=== PATIENT | female | born 1965 | race Caucasian/White ===

== ENCOUNTER 2016-08-14 13:39 | Observation (INO) | payer MEDICAID ==
[2016-08-14] MEDS ORDERED: NS 0.9% 1000 ML* 1,000 ML IV ONE (14:26)
[2016-08-14 14:35] LABS: Hematocrit 38 % (35-47); Hemoglobin 12.6 g/dl (12.0-16.0); Mean Corpuscular HGB Conc 33 g/dl (31-36); Mean Corpuscular Hemoglobin 28 pg (27-31); Mean Corpuscular Volume 85 fL (80-97); Mean Platelet Volume 9 um3 (7.4-10.4); Red Cell Distribution Width 16 % (10.5-15); White Blood Count 9.3 10^3/ul (3.5-10.8)
[2016-08-14 14:51] LABS: Albumin 3.8 g/dL (3.2-5.2); BUN/Creatinine Ratio 21.2 (8-20); C Reactive Protein 15.22 mg/L (< 5.00); EGFR African American 160.5 (>60); EGFR Non-African American 124.8 (>60); Globulin 3.5 g/dL (2-4); Potassium 3.3 mmol/L (3.5-5.0); Total Protein 7.3 g/dL (6.4-8.9)
--- NOTE | 2016-08-14 15:27 | ED ---
Abdominal Pain/Male - HPI Summary HPI Summary: Patient presents with RUQ pain and known gall stones. She was scheduled to have her gallbladder removed on 08/07/16 but her insurance fell through and it was postponed. Over the last two days her pain has again become intolerable. She denies fever, but has had chills. She feels nauseous without vomiting, denies diarrhea, constipation. Pain is increased after eating and takes 3 hours to resolve. She denies back pain, CP, SOB or flank pain. - History of Current Complaint Chief Complaint: EDAbdPain Stated Complaint: ABD PAIN Time Seen by Provider: 08/14/16 14:10 Hx Obtained From: Patient Onset/Duration: Gradual Onset, Lasting Days, Worse Since - two days ago Timing: Intermittent, Lasting Hours - after meals Severity Initially: Mild Severity Currently: Severe Pain Intensity: 20 Location: Discrete At: RUQ Radiates: No Character: Sharp Aggravating Factor(s): Food Alleviating Factor(s): Spontaneous Resolution Associated Signs And Symptoms: Positive: Nausea - Allergies/Home Medications Allergies/Adverse Reactions: Allergies Allergy/AdvReac Type Severity Reaction Status Date / Time No Known Allergies Allergy Verified 08/01/16 12:38 Home Medications: Home Medications Lisinopril [Lisinopril 30 MG-] 30 mg PO DAILY 08/14/16 [History Confirmed ] Metoprolol Succinate XL TAB* [Toprol XL TAB*] 50 mg PO DAILY 08/14/16 [History Confirmed 08/14/16] Venlafaxine CAP (NF) [Effexor CAP (NF)] 75 mg PO DAILY 08/14/16 [History Confirmed 08/14/16] buPROPion SR TAB* [Wellbutrin SR TAB*] 150 mg PO BID 08/14/16 [History Confirmed 08/14/16] oxyCODONE TAB* [Roxycodone TAB 5 mg*] 5 - 10 mg PO DAILY PRN MDD 10mg 08/14/16 [ History Confirmed 08/14/16] PMH/Surg Hx/FS Hx/Imm Hx Endocrine/Hematology History: Denies: Hx Diabetes Cardiovascular History: Reports: Hx Hypertension Denies: Hx Pacemaker/ICD GI History: Reports: Hx Gall Bladder Disease History: Denies: Hx Renal Disease Musculoskeletal History: Reports: Hx Arthritis Sensory History: Reports: Hx Contacts or Glasses - glasses Denies: Hx Hearing Aid Opthamlomology History: Reports: Hx Contacts or Glasses - glasses Psychiatric History: Reports: Hx Anxiety - on meds, Hx Depression Denies: Hx Panic Disorder - Surgical History Surgery Procedure, Year, and Place: LT KNEE - Xs 2 PATELLA REPAIR Hx Anesthesia Reactions: No Infectious Disease History: No Infectious Disease History: Denies: Traveled Outside the [place] in Last 30 Days - Family History Known Family History: Positive: None - Social History Occupation: Employed Full-time Lives: With Family Alcohol Use: None Substance Use Type: Reports: None Smoking Status (MU): Never Smoked Tobacco Review of Systems Negative: Fever Negative: Chest Pain Negative: Shortness Of Breath Positive: Abdominal Pain, Nausea. Negative: Vomiting, Diarrhea Positive: no symptoms reported Negative: Bruising All Other Systems Reviewed And Are Negative: Yes Physical Exam Triage Information Reviewed: Yes Vital Signs On Initial Exam: Initial Vitals Temp Pulse Resp BP Pulse Ox 96.7 F 69 22 187/112 96 08/14/16 13:53 08/14/16 13:53 08/14/16 13:53 08/14/16 13:53 08/14/16 13:53 Vital Signs Reviewed: Yes Appearance: Positive: Well-Appearing, Pain Distress, Obese Skin: Positive: Warm, Skin Color Reflects Adequate Perfusion, Dry, Soft Head/Face: Positive: Normal Head/Face Inspection Eyes: Positive: EOMI, ABDELRAHMAN, Conjunctiva Clear ENT: Positive: Hearing grossly normal Respiratory/Lung Sounds: Positive: Clear to Auscultation, Breath Sounds Present Cardiovascular: Positive: RRR Abdomen Description: Positive: Soft, Guarding - RUQ. Negative: Nontender - TTP RUQ and epigastric region, CVA Tenderness (R), CVA Tenderness (L), Distended, Hepatomegaly, McBurney's Point Tenderness, Peritoneal Signs, Pulsatile Mass, Splenomegaly Bowel Sounds: Positive: Present Musculoskeletal: Positive: Strength/ROM Intact. Negative: Edema Left, Edema Right Neurological: Positive: Sensory/Motor Intact, Alert, Oriented to Person Place, Time, NV Bundle Intact Distally Psychiatric: Positive: Affect/Mood Appropriate AVPU Assessment: Alert - E[place]to Coma Scale Coma Scale Total: 15 Diagnostics - Vital Signs Vital Signs Temp Pulse Resp BP Pulse Ox 08/14/16 14:58 89 19 99 08/14/16 14:00 61 99 08/14/16 13:53 96.7 F 66 22 187/112 98 - Laboratory Lab Results: Lab Results 08/14/16 08/14/16 Range/Units 13:10 13:10 WBC 9.3 (3.5-10.8) 10^3/ul RBC 4.50 (4.0-5.4) 10^6/ul Hgb 12.6 (12.0-16.0) g/dl Hct 38 (35-47) % MCV 85 (80-97) fL MCH 28 (27-31) pg MCHC 33 (31-36) g/dl RDW 16 H (10.5-15) % Plt Count 299 (150-450) 10^3/ul MPV 9 (7.4-10.4) um3 Neut % (Auto) 73.2 (38-83) % Lymph % (Auto) 17.0 L (25-47) % [place] % (Auto) 8.0 (1-9) % Eos % (Auto) 1.3 (0-6) % Baso % (Auto) 0.5 (0-2) % Absolute Neuts (auto) 6.8 (1.5-7.7) 10^3/ul Absolute Lymphs (auto) 1.6 (1.0-4.8) 10^3/ul Absolute Monos (auto) 0.7 (0-0.8) 10^3/ul Absolute Eos (auto) 0.1 (0-0.6) 10^3/ul Absolute Basos (auto) 0 (0-0.2) 10^3/ul Absolute Nucleated RBC 0 10^3/ul Nucleated RBC % 0 Sodium 138 (133-145) mmol/L Potassium 3.3 L (3.5-5.0) mmol/L Chloride 104 (101-111) mmol/L Carbon Dioxide 27 (22-32) mmol/L Anion Gap 7 (2-11) mmol/L BUN 11 (6-24) mg/dL Creatinine 0.52 (0.51-0.95) mg/dL Est GFR ( Amer) 160.5 (>60) Est GFR (Non-Af Amer) 124.8 (>60) BUN/Creatinine Ratio 21.2 H (8-20) Glucose 98 (70-100) mg/dL Calcium 9.0 (8.6-10.3) mg/dL Total Bilirubin 2.00 H (0.2-1.0) mg/dL AST 638 H (13-39) U/L ALT 369 H (7-52) U/L Alkaline Phosphatase 157 H (34-104) U/L C-Reactive Protein 15.22 H (< 5.00) mg/L Total Protein 7.3 (6.4-8.9) g/dL Albumin 3.8 (3.2-5.2) g/dL Globulin 3.5 (2-4) g/dL Albumin/Globulin Ratio 1.1 (1-3) Result Diagrams: 08/15/16 06:47 08/14/16 17:30 Lab Statement: Any lab studies that have been ordered have been reviewed, and results considered in the medical decision making process. - EKG No standard instances Cardiac Rate: NL EKG Rhythm: Sinus Rhythm ST Segment: Normal Ectopy: None Abdominal Pain Fem Course/Dx - Course Course Of Treatment: Patient's notes and imaging from previous visits were reviewed and a surgical consults was sought. - Diagnoses Differential Diagnosis/HQI/PQRI: AMI, Appendicitis, Bowel Obstruction, Constipation, Diverticulitis, Gall Bladder Disease, Pancreatitis, Renal Colic, Ureteral Stone, Urinary Tract Infection Provider Diagnoses: Gall bladder disease - Provider Notifications Discussed Care Of Patient With: Dr. Burkett with general surgery. Discharge - Discharge Plan Condition: Stable Disposition: ADMITTED TO [facility]
[2016-08-14 15:44] LABS: Troponin I 0.02 ng/mL (<0.04)
--- NOTE | 2016-08-14 17:09 | PN ---
Progress Note - Progress Note Note: Brief Admit note: (H&P dictated) 51 yo female w/ known hx of cholelithiasis, scheduled for lap myla last wk but cx'd 2/2 loss of insurance. Had worst attack thus far starting at 6 pm last night, with RUQ pain, radiating across upper abd, assoc w/ N&V, chills, and dark urine (which she states has been present since onset of her GB trouble in Mar). At present she is w/o pain. VS, Labs, and previous w/u reviewed. Patient examined. Acute Biliary colic, w/ concern for choledocholithiasis Discussed w/ Dr. Burkett. Will admit for IV hydration, pain and nausea control ; repeat labs in a.m.; poss lap myla 08/15 if labs improved.
[2016-08-14] MEDS ORDERED: Metoprolol Tartrate IV* 1 MG/ML 5 ML VIAL IV PRN (17:18)
[2016-08-14] MEDS ORDERED: Ondansetron INJ* 2 MG/ML VIAL IV ONE (17:20)
[2016-08-14] MEDS ORDERED: HYDROmorphone INJ* 1 MG/ML CARPUJECT SYRINGE IV SLOW PU ONE ×2 (17:20)
[2016-08-14 18:46] LABS: BUN/Creatinine Ratio 20.8 (8-20); Calcium 8.7 mg/dL (8.6-10.3); EGFR African American 176.1 (>60); EGFR Non-African American 136.9 (>60); Potassium 3.9 mmol/L (3.5-5.0)
[2016-08-14] MEDS: HYDROmorphone INJ* 1 MG/ML CARPUJECT SYRINGE IV SLOW PU PRN (19:20)
[2016-08-14] MEDS: buPROPion SR TAB.SR* 150 MG PO SCH (20:55)
[2016-08-14] MEDS ORDERED: buPROPion SR TAB.SR* 150 MG PO ONE (21:00)
--- NOTE | 2016-08-14 21:06 | HP ---
ADMISSION HISTORY AND PHYSICAL: DATE OF ADMISSION: 08/14/16 ATTENDING SURGEON: Trent Burkett MD (dictated by MARIPOSA Cabello) CHIEF COMPLAINT: Right upper quadrant pain. HISTORY OF PRESENT ILLNESS: This is a 51-year-old female previously worked up and scheduled for cholecystectomy for symptomatic cholelithiasis; however, surgery was postponed because of insurance issues. In the interim, she has continued to experience intermittent episodes of upper abdominal pain and beginning last evening around 6 p.m., her worst attack thus far with unrelenting right upper quadrant pain radiating across the upper abdomen and associated with nausea and multiple episodes of vomiting. She also reports chills and dark urine (the dark urine she states has been present since onset of her gallbladder problems in March). At the present time, she states that her pain is 0 and she has not required any pain medications in the ED. Her previous workup included an ultrasound on 04/12/16, which showed gallstones , but no evidence of acute cholecystitis. Her initial presentation while camping in the [facility] area included rule out of cardiac issues and elevated liver function tests, which had since returned to normal on repeat check here. PAST MEDICAL HISTORY: 1. Hypertension. 2. Depression. PREVIOUS SURGERIES: Left knee cap replacement (she is also pending for possible total knee replacement in the future). CURRENT MEDICATIONS: 1. Metoprolol ER 50 mg once daily. 2. Lisinopril 30 mg once daily. 3. Venlafaxine 75 mg once daily. 4. Bupropion ER 150 mg b.i.d. (the patient states that one of her blood pressure medications was increased recently by her PCP, possibly the metoprolol , though she is not entirely sure). DRUG ALLERGIES: None known. SOCIAL HISTORY: The patient lives with her female partner. She denies alcohol , tobacco, or other drug use. REVIEW OF SYSTEMS: General: Constitutional symptoms as noted above. She states that her weight has remained stable. Cardiovascular: No chest pain per se (other than her epigastric pain as noted in the HPI). Respiratory: No chronic cough or shortness of breath. GI: As above per HPI. : No dysuria or increased frequency. Dark urine as noted in the HPI. MEDICAL RECEPTION: Denies any problems. Hematological: No history of chronic anemia or bleeding disorders. PHYSICAL EXAMINATION GENERAL: A well-nourished, somewhat obese female, in no acute distress though appears chilled with blankets covering her. VITAL SIGNS: Height 5 feet 7 inches, weight 220 pounds, temperature 96.7, blood pressure 187/112, pulse 88, respirations 19, and room air saturation 99%. HEENT: Pupils equal, round, reactive. EOMs intact. No conjunctival pallor or scleral icterus. Oropharynx: Mucous membranes slightly dry. Some teeth missing and are in poor repair. No intraoral lesions. NECK: No lymphadenopathy, thyromegaly, or masses. LUNGS: Clear to auscultation. No wheezes or rales. HEART: Regular rate and rhythm. No murmur noted. BREASTS: Not examined. ABDOMEN: Obese, soft with tenderness in the mid epigastrium and right upper quadrant with palpable fullness and positive Avila's sign. The remainder of the abdomen is soft, nontender without palpable masses or organomegaly. No palpable inguinal hernias. EXTREMITIES: No edema. GENITALIA AND RECTAL: Not done. BACK: No CVA tenderness. NEUROLOGICAL: Grossly intact. SKIN: Warm and dry. No suspicious rashes or lesions. DIAGNOSTIC STUDIES/LAB DATA: Of note, white blood cell count 9300 and hemoglobin 12.6. Potassium 3.3. CRP 15. Troponin 0.02. Total bilirubin 2.0, AST 638, ALT 369, and alkaline phosphatase 157. No additional imaging was done. EKG was done and read as normal by the ED provider. IMPRESSION: Acute biliary colic with elevated LFTs, some concern for choledocholithiasis. PLAN (DISCUSSED WITH DR. BURKETT): Admit for IV hydration, pain and nausea control, and repeat lab work in the morning. If improved, possible semi-urgent laparoscopic cholecystectomy. MARIPOSA KRAUS CC: Dr. Burkett's office; Dr. Marrero at [facility]* [id number]/[facility] #: [id number] [facility]
[2016-08-14] MEDS ORDERED: Piperac/Tazob 3.375 gm in NS* 3.375 GM/100 ML BAG IVPB ONE (22:00)
[2016-08-14] MEDS: NS 0.9% w/ 20 Meq KCL 1000 ML* 1,000 ML IV SCH (22:26)
[2016-08-15] MEDS: HYDROmorphone INJ* 1 MG/ML CARPUJECT SYRINGE IV SLOW PU PRN ×2 (01:03→23:59)
[2016-08-15] MEDS: Piperac/Tazob 3.375 gm in NS* 3.375 GM/100 ML BAG IVPB SCH ×2 (01:05→10:37)
[2016-08-15] MEDS ORDERED: Piperac/Tazob 3.375 gm in NS* 3.375 GM/100 ML BAG IVPB ONE (02:00)
[2016-08-15 07:17] LABS: Hematocrit 33 % (35-47); Mean Corpuscular HGB Conc 33 g/dl (31-36); Mean Corpuscular Hemoglobin 29 pg (27-31); Mean Corpuscular Volume 86 fL (80-97); Mean Platelet Volume 9 um3 (7.4-10.4); Red Blood Count 3.83 10^6/ul (4.0-5.4); Red Cell Distribution Width 16 % (10.5-15); White Blood Count 7.3 10^3/ul (3.5-10.8)
[2016-08-15 07:33] LABS: ALT 265 U/L (7-52); AST 248 U/L (13-39); Albumin 3.1 g/dL (3.2-5.2); Alkaline Phosphatase 138 U/L (34-104); Globulin 2.9 g/dL (2-4); Indirect Bilirubin 1.3 mg/dL (0.3-1.0)
[2016-08-15] MEDS: NS 0.9% w/ 20 Meq KCL 1000 ML* 1,000 ML IV SCH ×2 (07:52→16:35)
--- NOTE | 2016-08-15 08:11 | PN ---
Progress Note - Progress Note SOAP: Subjective: She had been scheduled with me for elective cholecystectomy on 08/07 but cancelled due to insurance reasons. She feels better this morning- no pain or N/V Ambulating in halls Objective: Temp Pulse Resp BP Pulse Ox 97.8 F 88 18 150/96 98 08/15/16 07:53 08/15/16 07:53 08/15/16 07:53 08/15/16 07:53 08/15/16 07:53 Intake & Output 08/13/16 08/14/16 08/15/16 08/16/16 06:59 06:59 06:59 06:59 Intake Total 2522 Output Total 275 Balance 2247 Weight 220 lb Intake: IV Fluids 2160 IVPB 212 Oral 150 Output: Urine 275 PEX: Comfortable Lungs are CTA COr is RRR Abd is soft and non-distended. There is no tenderness, bowel sounds are present. Ext without edema Laboratory Last Values WBC 7.3 10^3/ul (3.5-10.8) 08/15/16 06:47 RBC 3.83 10^6/ul (4.0-5.4) L 08/15/16 06:47 Hgb 11.0 g/dl (12.0-16.0) L 08/15/16 06:47 Hct 33 % (35-47) L 08/15/16 06:47 MCV 86 fL (80-97) 08/15/16 06:47 MCH 29 pg (27-31) 08/15/16 06:47 MCHC 33 g/dl (31-36) 08/15/16 06:47 RDW 16 % (10.5-15) H 08/15/16 06:47 Plt Count 241 10^3/ul (150-450) 08/15/16 06:47 MPV 9 um3 (7.4-10.4) 08/15/16 06:47 Neut % (Auto) 57.1 % (38-83) 08/15/16 06:47 Lymph % (Auto) 30.1 % (25-47) 08/15/16 06:47 [place] % (Auto) 7.8 % (1-9) 08/15/16 06:47 Eos % (Auto) 4.1 % (0-6) 08/15/16 06:47 Baso % (Auto) 0.9 % (0-2) 08/15/16 06:47 Absolute Neuts (auto) 4.2 10^3/ul (1.5-7.7) 08/15/16 06:47 Absolute Lymphs (auto) 2.2 10^3/ul (1.0-4.8) 08/15/16 06:47 Absolute Monos (auto) 0.6 10^3/ul (0-0.8) 08/15/16 06:47 Absolute Eos (auto) 0.3 10^3/ul (0-0.6) 08/15/16 06:47 Absolute Basos (auto) 0.1 10^3/ul (0-0.2) 08/15/16 06:47 Absolute Nucleated RBC 0.01 10^3/ul 08/15/16 06:47 Nucleated RBC % 0.1 08/15/16 06:47 Sodium 138 mmol/L (133-145) 08/14/16 17:30 Potassium 3.9 mmol/L (3.5-5.0) 08/14/16 17:30 Chloride 108 mmol/L (101-111) 08/14/16 17:30 Carbon Dioxide 23 mmol/L (22-32) 08/14/16 17:30 Anion Gap 7 mmol/L (2-11) 08/14/16 17:30 BUN 10 mg/dL (6-24) 08/14/16 17:30 Creatinine 0.48 mg/dL (0.51-0.95) L 08/14/16 17:30 Est GFR ( Amer) 176.1 (>60) 08/14/16 17:30 Est GFR (Non-Af Amer) 136.9 (>60) 08/14/16 17:30 BUN/Creatinine Ratio 20.8 (8-20) H 08/14/16 17:30 Glucose 95 mg/dL (70-100) 08/14/16 17:30 Calcium 8.7 mg/dL (8.6-10.3) 08/14/16 17:30 Total Bilirubin 1.80 mg/dL (0.2-1.0) H 08/15/16 06:47 Direct Bilirubin 0.50 mg/dL (0.03-0.18) H 08/15/16 06:47 Indirect Bilirubin 1.3 mg/dL (0.3-1.0) H 08/15/16 06:47 AST 248 U/L (13-39) H 08/15/16 06:47 ALT 265 U/L (7-52) H 08/15/16 06:47 Alkaline Phosphatase 138 U/L (34-104) H 08/15/16 06:47 Troponin I 0.02 ng/mL (<0.04) 08/14/16 13:10 C-Reactive Protein 15.22 mg/L (< 5.00) H 08/14/16 13:10 Total Protein 6.0 g/dL (6.4-8.9) L 08/15/16 06:47 Albumin 3.1 g/dL (3.2-5.2) L 08/15/16 06:47 Globulin 2.9 g/dL (2-4) 08/15/16 06:47 Albumin/Globulin Ratio 1.1 (1-3) 08/15/16 06:47 Assessment: Cholelithiasis with RUQ abd pain-improved Improvement in LFT's this morning with decrease in total bilirubin, mainly indirect component. Plan: Cholecystectomy today with possible cholangiogram to rule out CBD stones. Discussed with patient and explained the procedure/risks/alternatives to her as I had done in the office prior to her recently cancelled elective surgery.
[2016-08-15] MEDS ORDERED: Famotidine IV* 10 MG/ML 2 ML (20 mg) IV ONE ×2 (08:23)
[2016-08-15] MEDS: buPROPion SR TAB.SR* 150 MG PO SCH ×2 (08:47→22:00)
[2016-08-15] MEDS: Metoprolol Succinate XL TAB* 50 MG PO SCH (08:47)
[2016-08-15] MEDS ORDERED: Metoprolol Succinate XL TAB* 50 MG PO ONE (09:00)
[2016-08-15] MEDS ORDERED: CMCS: Venlafaxine TAB (NF) 25 MG TAB PO ONE (09:00)
[2016-08-15] MEDS: CMCS: Venlafaxine TAB (NF) 25 MG TAB PO SCH (09:06)
[2016-08-15] MEDS: Ondansetron INJ* 2 MG/ML VIAL IV PRN ×2 (09:09→18:27)
[2016-08-15] MEDS ORDERED: Midazolam* 1 MG/ML 5 ML VIAL (5 MG) ONE ×2 (12:15)
[2016-08-15] MEDS ORDERED: Atracurium* 10 MG/ML 10 ML VIAL ONE ×2 (12:15)
[2016-08-15] MEDS ORDERED: fentaNYL* 50 MCG/ML 2 ML VIAL (100 MCG VIAL) ONE ×4 (12:15→15:50)
[2016-08-15] MEDS ORDERED: KETAMINE HCL* 50 MG/ML 10 ML VIAL ONE ×2 (12:15)
[2016-08-15] MEDS ORDERED: Bupivacaine 0.25% EPI 200,000* 30 ML SDV ONE ×2 (12:52)
[2016-08-15] MEDS ORDERED: Iohexol 180 (CONTRAST) 10 ML SDV IV ONE (12:52)
[2016-08-15] MEDS ORDERED: Iohexol 300 (CONTRAST) 100 ML SDV IV ONE (12:52)
[2016-08-15] MEDS ORDERED: Metoprolol Tartrate IV* 1 MG/ML 5 ML VIAL ONE ×2 (13:33)
[2016-08-15] MEDS ORDERED: Morphine INJ* 10 MG/ML 1 ML CARPUJECT ONE ×2 (13:33)
[2016-08-15] MEDS ORDERED: Morphine INJ* 2 MG/ML 1 ML CARPUJECT IV PRN (14:00)
[2016-08-15] MEDS ORDERED: PROCHLORPERAZINE INJ 5 MG/ML 2 ML VIAL IV PRN ×2 (14:00→20:30)
[2016-08-15] MEDS ORDERED: oxyCODONE/Acetamin 5/325 MG* TAB PO PRN (14:00)
[2016-08-15] MEDS ORDERED: Glucagon* 1 MG VIAL ONE ×2 (14:07)
[2016-08-15] MEDS ORDERED: Neostigmine Methylsulfate* 2 MG/2 ML SYRINGE ONE ×2 (14:16)
[2016-08-15] MEDS ORDERED: Dexamethasone IV* 4 MG/ML 1 ML (4 MG) ONE ×2 (14:16)
[2016-08-15] MEDS ORDERED: Ondansetron INJ* 2 MG/ML VIAL ONE ×2 (14:16)
[2016-08-15] MEDS ORDERED: hydrALAZINE IV* 20 MG/ML VIAL ONE ×2 (14:16)
[2016-08-15] MEDS ORDERED: Propofol* 10 MG/ML 20 ML BTL IV PUSH ONE ×2 (14:16)
[2016-08-15] MEDS ORDERED: Glycopyrrolate IV* 0.2 MG/ML 1 ML VIAL ONE ×2 (14:16)
--- NOTE | 2016-08-15 14:59 | SURGPN ---
Brief Operative Note - Surgery Procedures: OPERATIVE REPORT PRE-OP: Right upper quadrant pain Cholelithiasis POST-OP: Same, choledocholithiasis PROCEDURE: Laparscopic cholecystectomy with cholangiogram SURGEON: MD Kwadwo ANESTHESIA: General and local with DrKadie Monroe ASST: MARIPOSA Irizarry IVF: 1 liter of crystalloid EBL: min SPECIMEN: gallbladder DRAIN: none WOUND CLASS: Contaminated FINDINGS: Gallstones and cholangiogram with little flow of contrast into the duodenum, minimal duct dilation and apparent filling defect in the distal CBD. COMPLICATIONS: none TO PACU
--- NOTE | 2016-08-15 15:03 | RAD ---
CPT II Codes: 6045F. Indication: Common duct calculi. Biliary colic. 69.5 seconds of fluoroscopy time was used. There is no evidence of filling defect in the visualized common hepatic or common bile duct. IMPRESSION: No evidence of common duct calculi is noted.
[2016-08-15] MEDS ORDERED: oxyCODONE/Acetamin 5/325 MG* TAB PO ONE (15:04)
[2016-08-15] MEDS ORDERED: Acetaminophen TAB* 325 MG PO PRN (15:05)
[2016-08-15] MEDS: fentaNYL* 50 MCG/ML 2 ML VIAL (100 MCG VIAL) IV PRN ×3 (15:11→15:57)
[2016-08-15] MEDS: oxyCODONE/Acetamin 5/325 MG* TAB PO PRN (19:32)
[2016-08-15] MEDS ORDERED: PROCHLORPERAZINE INJ 5 MG/ML 2 ML VIAL IV ONE (20:30)
[2016-08-15] MEDS ORDERED: Scopolamine 1.5 mg* PATCH TRANSDERM ONE ×2 (21:00)
--- NOTE | 2016-08-15 21:17 | CONS ---
GASTROENTEROLOGY CONSULT: DATE: 08/15/16 CONSULTING PHYSICIANS: Trent Christy; Nolan Marrero * REASON FOR CONSULTATION: Biliary colic with elevated LFTs and an intraoperative cholangiogram suggesting restriction to flow of the distal common bile duct. HISTORY: This 51-year-old woman who has been having episodes of abdominal pain since February, today had laparoscopic cholecystectomy after presenting to the emergency room with an increase in pain. Per report, the cholecystectomy went well though an intraoperative cholangiogram showed a cut-off or narrowing of the distal common bile duct. No definite stone was seen, but there was somewhat of a meniscus sign. Otherwise, the cystic duct and common duct appeared unremarkable. She states that she had had a couple of episodes of pain in the summer, but then had severe pain over Labor Day and after 4 hours went to the emergency room in [place], [place]. She said blood work was done with liver tests off , but she was not admitted. She then sporadically had some pain over the fall. A set of LFTs on 04/18/16 in f/u here were normal. Abdominal ultrasound showed cholelithiasis on 04/12/16. She had had a cholecystectomy set up, but then canceled when insurance through [employer] fell through. She then came to the emergency room with increased pain yesterday and had the cholecystectomy today. PAST MEDICAL HISTORY: 1. Hypertension. 2. Obesity. 3. Depression. 4. Left knee calf abnormality. OUTPATIENT MEDICATIONS: 1. Metoprolol 50 daily. 2. Lisinopril 30. 3. Venlafaxine 75. 4. Bupropion ER 150 b.i.d. SOCIAL HISTORY: She lives with a female partner. She has a 25-year-old son with Down's syndrome living with her. She also cares for 5 grandchildren. REVIEW OF SYSTEMS: No history of palpitations, syncope, cardiac disease, [place], TB , prior liver disease, or renal disease. She has not had a chest x-ray in the system. Her first visit to [facility] was 04/12/16 for the ultrasound. PHYSICAL EXAM: She is a moderately overweight, middle-aged woman in bed with a basin lying at her side, but simultaneously she is eating small amounts of sherbet and taking interest in her full liquid dinner. She does not appear in distress and in a few minutes set the basin aside saying she did not need it. She says that there is no pain today or at this time. She is afebrile, pulse 77 , blood pressure 135/61. She has no adenopathy. Lungs are clear. Heart sounds are regular. The abdomen has some residual Betadine and some Steri- Strips present. Bowel sounds are positive. The abdomen is soft. The extremities show no edema. LABORATORY DATA: Show a bilirubin today 1.8, down from yesterday's 2.0. ALT 265, down from yesterday's 369. CBC: White count 7.3, hemoglobin 11.0, MCV 86 , platelets 241, eosinophils 4.1%. RADIOLOGY REVIEWED: Intraoperative cholangiogram shows a normal symmetric CBD and then a smoothly tapered distal duct for 1 cm and then an abrupt cessation. One can discern a very minimal trickle through about 1.5 cm and then a little bit of dye seems to be present in the descending duodenum. The cine images extend only about 10 to 12 seconds. There is no free floating defect in the common duct. There was a subjective feeling of resistance to the infusion of dye noted by Dr Burkett IMPRESSION: This 51-year-old woman has had 4 months of colicy pain c/w a biliary source which is confirmed with the LFT elevations. Today, she had a cholecystectomy due to a second ER presentation from severe pain. Clearly, she has had some stones or fragments of stones transiting the common duct and the question is whether or not there still is stone material in the common duct. It may have passed. The appearance of the cholangiogram may be due to spasm. Less likely some other lesion in the pancreatic head. This would be less likely given the 4 months of pain. What to do next will depend on her pain level following LFTs, and if either of these are not going satisfactorily, she will need some further imaging. A CT scan would be useful. An MRCP could be done and consulting the MRI department, for patients having cholecystectomies in our institution where the clip materials used are known, per private conversation, MRCPs can take place in the acute phase after a cholecystectomy even the next day. [id number]/[facility] #: [id number] MTDD
[2016-08-16] MEDS: NS 0.9% w/ 20 Meq KCL 1000 ML* 1,000 ML IV SCH ×2 (00:01→08:02)
[2016-08-16] MEDS: oxyCODONE/Acetamin 5/325 MG* TAB PO PRN (02:12)
[2016-08-16] MEDS: HYDROmorphone INJ* 1 MG/ML CARPUJECT SYRINGE IV SLOW PU PRN ×2 (02:31→09:39)
[2016-08-16 06:50] LABS: Hematocrit 33 % (35-47); Hemoglobin 10.6 g/dl (12.0-16.0); Mean Corpuscular HGB Conc 33 g/dl (31-36); Mean Corpuscular Hemoglobin 28 pg (27-31); Mean Corpuscular Volume 87 fL (80-97); Mean Platelet Volume 9 um3 (7.4-10.4); Red Blood Count 3.77 10^6/ul (4.0-5.4); Red Cell Distribution Width 17 % (10.5-15); White Blood Count 11.6 10^3/ul (3.5-10.8)
[2016-08-16 07:03] LABS: ALT 182 U/L (7-52); AST 115 U/L (13-39); Alkaline Phosphatase 140 U/L (34-104); Anion Gap 6 mmol/L (2-11); BUN/Creatinine Ratio 12.8 (8-20); Blood Urea Nitrogen 6 mg/dL (6-24); CO2 Carbon Dioxide 23 mmol/L (22-32); Calcium 8.5 mg/dL (8.6-10.3); Chloride 106 mmol/L (101-111); EGFR African American 180.4 (>60); EGFR Non-African American 140.3 (>60); Globulin 2.9 g/dL (2-4); Glucose 104 mg/dL (70-100); Lipase < 10 U/L (11.0-82.0); Potassium 3.8 mmol/L (3.5-5.0); Sodium 135 mmol/L (133-145); Total Protein 5.9 g/dL (6.4-8.9)
[2016-08-16] MEDS: Metoprolol Succinate XL TAB* 50 MG PO SCH (08:08)
[2016-08-16] MEDS: buPROPion SR TAB.SR* 150 MG PO SCH (08:08)
[2016-08-16] MEDS: CMCS: Venlafaxine TAB (NF) 25 MG TAB PO SCH (08:08)
--- NOTE | 2016-08-16 08:56 | OP ---
CC: [facility] OPERATIVE REPORT: DATE OF OPERATION: 08/15/16 DATE OF : 67 SURGEON: Trent Burkett MD DRIVER LICENSE EXAMINER: MARIPOSA Ramirez ANESTHESIOLOGIST: Dr. Day. ANESTHESIA: General with local. PRE-OP DIAGNOSIS: Cholelithiasis and right upper quadrant abdominal pain. POST-OP DIAGNOSES: 1. Cholelithiasis and right upper quadrant abdominal pain. 2. Choledocholithiasis. OPERATIVE PROCEDURE: Laparoscopic cholecystectomy with cholangiogram. ESTIMATED BLOOD LOSS: Minimal. IV FLUIDS: 1 L of crystalloid. WOUND CLASSIFICATION: Contaminated. SPECIMENS: Gallbladder. COMPLICATIONS: None. DRAINS: None. FINDINGS: There was no evidence of acute or chronic cholecystitis. Intraoperative cholangiogram showed generous-size common bile duct with stones in the cystic duct and what appeared to be a filling defect in the distal common bile duct with a really very minimal flow into the duodenum of contrast and difficulty injecting the contrast into the common duct due to pressure. BRIEF HISTORY: Ms. Nisa Pimentel is a 51-year-old woman with known gallstones who has had some intermittent right upper quadrant abdominal pain over the past several months and also had an elevated liver transaminases and bilirubin. She presented to a hospital while traveling this past fall. An ultrasound confirmed gallstones, and her recent laboratory values have been unremarkable. She was initially scheduled for an elective cholecystectomy last week, but she had canceled due to insurance issues. Unfortunately, she presented to the emergency room with severe right upper quadrant abdominal pain for 24 hours, noted to have mild elevation of transaminases and bilirubin with a normal white count, and she had right upper quadrant abdominal pain. She was admitted and started on IV antibiotics. Repeat lab tests showed slight decrease in her total bilirubin as well as transaminases and bilirubin to be mostly unconjugated. After discussion with the patient, we are taking her to the operating room for laparoscopic cholecystectomy with a cholangiogram to rule out common bile duct stones. I discussed the procedure with her in the office, but the risks are but not limited to bleeding, infection, intraabdominal abscess formation, injury to peritoneal and retroperitoneal structures, common bile duct injury requiring further reconstruction and surgeries as well as possibility of an ERCP depending on cholangiogram results, the risk of general anesthesia, deep vein thrombosis, and pulmonary embolism were all explained. DESCRIPTION OF PROCEDURE: Written informed consent was obtained. The abdomen was marked with indelible ink and preoperative antibiotics were administered. The patient was taken to the operating room, placed in the supine position. Sequential compression devices with a warming blanket were applied. General anesthesia was administered. The abdomen was prepped and draped in the usual sterile fashion. Time-out verification was completed. Next, a small vertical incision was made just above the umbilicus in the midline , and the peritoneal cavity was entered under direct vision. A 12-mm blunt port was inserted. The abdomen was insufflated to 15 mmHg. Under direct vision, an 11-mm epigastric port was placed and two 5-mm ports were placed in the right side of the abdominal wall. The gallbladder was identified. Both it and the liver appeared to be normal. The gallbladder wall was without acute or chronic inflammation. It was bluish in color. It was grasped and elevated up over the liver bed and, with care along the medial lateral aspects of the infundibular portion, the peritoneum was taken down to identify cystic duct and artery as I entered the gallbladder. I took a significant portion of the inferior part of the gallbladder after liver bed to show the cystic liver plate using a critical view technique to assure myself of these structures. The cystic duct did not appear to be dilated. As planned, a cholangiogram was then performed through the cystic duct using a 4 - [place] ureteral catheter. Upon opening the cystic duct at its junction with the gallbladder, there was a fairly strong backflow of bile with small stones that protruded from the cystic duct and these were collected. The catheter was then placed and clamped into position, and a cholangiogram was then performed. Multiple views showed slightly dilated common bile duct and perhaps some stones within the cystic duct; however, there was what appeared to be a filling defect of the distal common bile duct with really no flow of contrast into the duodenum, and it was also very difficult to inject the contrast as well as the saline, suggestive of a distal obstruction. When this was complete, the catheter was removed and the cystic duct was clipped with Hemoclips, and I also ligated this with a 2-0 Polysorb Endoloop to prevent leak. The gallbladder was then removed from the liver bed using cautery, placed in an Endo Catch bag, and brought out through the umbilical incision. The liver bed was then irrigated. Hemostasis was assured. There was no evidence of bile leak. All ports removed under direct vision of the camera. There was no abdominal wall bleeding. The umbilical fascia was closed with interrupted 0 Polysorb suture. The skin was approximated with subcuticular 4-0 Polysorb. Steri-Strips and sterile dressings were applied. The patient tolerated the procedure well and was taken to the recovery room in stable condition. [id number]/CPS #: [id number] MTDD
[2016-08-16] MEDS ORDERED: Lisinopril TAB* 10 MG PO SCH (09:00)
[2016-08-16] MEDS ORDERED: Lisinopril TAB* 10 MG PO ONE (09:00)
--- NOTE | 2016-08-16 10:36 | PN ---
Progress Note - Progress Note SOAP: Subjective: She had some nausea last night which has resolved. Complaining only of incisional pain today. No SOB Objective: Temp Pulse Resp BP Pulse Ox 98.8 F 85 18 125/71 97 08/16/16 07:31 08/16/16 07:31 08/16/16 09:39 08/16/16 07:31 08/16/16 07:31 Intake & Output 08/14/16 08/15/16 08/16/16 08/17/16 06:59 06:59 06:59 06:59 Intake Total 2522 4345 Output Total 275 2425 575 Balance 2247 1920 -575 Weight 220 lb Intake: IV Fluids 2160 4191 LR 1900 IVPB 212 34 Oral 150 120 Output: Urine 275 1925 575 Emesis 500 Other: Estimated Void Large # Voids 1 PEX: Comfortable Lungs are CTA Abd is soft and non-distended. Bowel sounds are present throughout. Incisions are clean and dry. Extremities without edema. Laboratory Last Values WBC 11.6 10^3/ul (3.5-10.8) H 08/16/16 06:11 RBC 3.77 10^6/ul (4.0-5.4) L 08/16/16 06:11 Hgb 10.6 g/dl (12.0-16.0) L 08/16/16 06:11 Hct 33 % (35-47) L 08/16/16 06:11 MCV 87 fL (80-97) 08/16/16 06:11 MCH 28 pg (27-31) 08/16/16 06:11 MCHC 33 g/dl (31-36) 08/16/16 06:11 RDW 17 % (10.5-15) H 08/16/16 06:11 Plt Count 275 10^3/ul (150-450) 08/16/16 06:11 MPV 9 um3 (7.4-10.4) 08/16/16 06:11 Neut % (Auto) 57.1 % (38-83) 08/15/16 06:47 Lymph % (Auto) 30.1 % (25-47) 08/15/16 06:47 Moody % (Auto) 7.8 % (1-9) 08/15/16 06:47 Eos % (Auto) 4.1 % (0-6) 08/15/16 06:47 Baso % (Auto) 0.9 % (0-2) 08/15/16 06:47 Absolute Neuts (auto) 4.2 10^3/ul (1.5-7.7) 08/15/16 06:47 Absolute Lymphs (auto) 2.2 10^3/ul (1.0-4.8) 08/15/16 06:47 Absolute Monos (auto) 0.6 10^3/ul (0-0.8) 08/15/16 06:47 Absolute Eos (auto) 0.3 10^3/ul (0-0.6) 08/15/16 06:47 Absolute Basos (auto) 0.1 10^3/ul (0-0.2) 08/15/16 06:47 Absolute Nucleated RBC 0.01 10^3/ul 08/15/16 06:47 Nucleated RBC % 0.1 08/15/16 06:47 Sodium 135 mmol/L (133-145) 08/16/16 06:11 Potassium 3.8 mmol/L (3.5-5.0) 08/16/16 06:11 Chloride 106 mmol/L (101-111) 08/16/16 06:11 Carbon Dioxide 23 mmol/L (22-32) 08/16/16 06:11 Anion Gap 6 mmol/L (2-11) 08/16/16 06:11 BUN 6 mg/dL (6-24) 08/16/16 06:11 Creatinine 0.47 mg/dL (0.51-0.95) L 08/16/16 06:11 Est GFR ( Amer) 180.4 (>60) 08/16/16 06:11 Est GFR (Non-Af Amer) 140.3 (>60) 08/16/16 06:11 BUN/Creatinine Ratio 12.8 (8-20) 08/16/16 06:11 Glucose 104 mg/dL (70-100) H 08/16/16 06:11 Calcium 8.5 mg/dL (8.6-10.3) L 08/16/16 06:11 Total Bilirubin 0.80 mg/dL (0.2-1.0) 08/16/16 06:11 Direct Bilirubin 0.50 mg/dL (0.03-0.18) H 08/15/16 06:47 Indirect Bilirubin 1.3 mg/dL (0.3-1.0) H 08/15/16 06:47 AST 115 U/L (13-39) H 08/16/16 06:11 ALT 182 U/L (7-52) H 08/16/16 06:11 Alkaline Phosphatase 140 U/L (34-104) H 08/16/16 06:11 Troponin I 0.02 ng/mL (<0.04) 08/14/16 13:10 C-Reactive Protein 15.22 mg/L (< 5.00) H 08/14/16 13:10 Total Protein 5.9 g/dL (6.4-8.9) L 08/16/16 06:11 Albumin 3.0 g/dL (3.2-5.2) L 08/16/16 06:11 Globulin 2.9 g/dL (2-4) 08/16/16 06:11 Albumin/Globulin Ratio 1.0 (1-3) 08/16/16 06:11 Lipase < 10 U/L (11.0-82.0) L 08/16/16 06:11 Beta HCG, Quant < 0.60 mIU/mL 08/15/16 06:47 Assessment: POD# 1 s/p Laparoscopic cholecystectomy with cholangiogram-she is doing well LFT's improved today. Cholangiogram reviewed with radiology and Dr. Nielsen from GI yesterday and there is concern for a possible filling defect in the distal CBD with minimal flow of contrast into the duodenum. Plan: Discussed again with Dr. Nielsen this morning-she is doing well and her LFT's have continued to decrease and certainly could have passed a small stone or findings on cholangiogram may be spasm. We discussed possible ERCP and he does not feel that this is indicated at present and that we can follow her clinically and if she develops pain or increase in LFT's an ERCP could then be performed. Will start full liquids and if she does well will plan discharge later today with outpatient follow up.
[2016-08-16 11:44] VITALS: BP 104/58
[2016-08-16] MEDS ORDERED: Piperac/Tazob 3.375 gm in NS* 3.375 GM/100 ML BAG IVPB ONE (15:50)
--- NOTE | 2016-08-16 22:20 | DS ---
DISCHARGE SUMMARY: DATE OF ADMISSION: 08/14/16 DATE OF DISCHARGE: 08/16/16 ATTENDING SURGEON: Trent Burkett MD (dictated by MARIPOSA Cabello) HOSPITAL COURSE: Please see admission history and physical for admission details. The patient was admitted with acute biliary colic with elevated liver function tests. She was taken to the OR on 08/15/[address] Burkett where she underwent laparoscopic cholecystectomy with intraoperative cholangiogram. The cholangiogram did demonstrate what was felt to be an obstruction in the distal common bile duct with only a trickle of contrast getting by. Consultation was obtained with Dr. Nielsen, who saw the patient on 08/15/16. The patient has remained essentially pain free other than her incisional pain since surgery and had been tolerating full liquid diet. As in the morning of discharge, her total bilirubin is normal at 0.8 from a peak of 2.0; AST 115, down from a peak of 638; ALT 182, down from a peak of 369; alkaline phosphatase 140, similar to pre and post op. The patient was seen the morning of discharge by Dr. Burkett. The latest vital signs: Temperature 98.3, blood pressure 104 /58, pulse 79, respirations 16, room air saturation 92% to 97%. Laparoscopic incision sites are clean and dry, [id number] incisional tenderness only. The case was reviewed with Dr. Burkett who felt that if patient was doing well clinically, she can be discharged. She understands the potential for retained common duct stone and though if that is the case, it may pass spontaneously. We will plan to see her in our office on 08/23/16. If she does have significant symptoms, we will obtain repeat liver function tests and likely imaging including possibly MRCP and/or eventual ERCP. MARIPOSA KRAUS CC: Dr. Marrero, BILLING ANALYST * [id number]/[facility] #: [id number] MTDD
[2016-08-18] MEDS ORDERED: Scopolamine PATCH Remove* 1 NOTE MISC PATCH OFF ONE (21:00)
== END 2016-08-16 15:50 | disposition home or self-care (01) ==
LOC: ED 13:39 → SSU 17:09
PROVIDERS: ADMIT Surgery; ATTEND Surgery
DX: K80.10 Calculus of gallbladder with chronic cholecystitis without obstruction (principal); I10 Essential (primary) hypertension; F32.9 Major depressive disorder, single episode, unspecified; E66.9 Obesity, unspecified
CPT/HCPCS: 36415; 74300; 80048; 80053; 80076; 83690; 84484; 84702; 85025; 85027; 86140; 88304; 93005; A9270-GY; J0360; J0780; J1100; J1170; J1610; J2250; J2270; J2405; J2543; J2704; J3010; J3480; J3490

== ENCOUNTER 2017-06-28 14:37 | Emergency (ER) | payer OTHER ==
[2017-06-28] MEDS ORDERED: Aspirin Low Dose CHEW TAB* 81 MG PO ONE (14:50)
[2017-06-28] MEDS ORDERED: Labetalol IV* 5 MG/ML 20 ML VIAL IV PUSH ONE (14:52)
[2017-06-28 15:10] LABS: Hematocrit 40 % (35-47); Hemoglobin 13.4 g/dl (12.0-16.0); Mean Corpuscular HGB Conc 33 g/dl (31-36); Mean Corpuscular Hemoglobin 30 pg (27-31); Mean Corpuscular Volume 90 fL (80-97); Mean Platelet Volume 8 um3 (7.4-10.4); Red Blood Count 4.51 10^6/ul (4.0-5.4); Red Cell Distribution Width 14 % (10.5-15); White Blood Count 11.6 10^3/ul (3.5-10.8)
[2017-06-28] MEDS ORDERED: Lidocaine 2% VISCOUS* 15 ML UDC PO ONE (15:22)
[2017-06-28] MEDS ORDERED: Al Hydrox/Mg Hydrox/Simet LIQ* 30 ML UDC PO ONE (15:22)
[2017-06-28 15:27] LABS: EGFR African American 167.3 (>60); EGFR Non-African American 130.1 (>60); Globulin 3.5 g/dL (2-4); Potassium 3.4 mmol/L (3.5-5.0); Total Bilirubin 0.6 mg/dL (0.2-1.0); Total Protein 7.5 g/dL (6.4-8.9); Troponin I 0.01 ng/mL (<0.04)
--- NOTE | 2017-06-28 15:49 | RAD ---
INDICATION: Chest pain COMPARISON: Chest x-ray dated May 11, 2017 TECHNIQUE: PA and lateral views of the chest were obtained. FINDINGS: The heart and mediastinum are normal in size and contour. The lungs are grossly clear. There is no evidence of large pleural effusion. Visualized bones are normal for the patient's age. There is no radiographic evidence of free air beneath the diaphragm IMPRESSION: No radiographic evidence of acute cardiopulmonary disease.
[2017-06-28 15:58] LABS: T4 8.62 mcg/mL (6.09-12.23)
[2017-06-28 16:02] LABS: TSH (Thyroid Stimulating Horm) 1.07 mcIU/mL (0.34-5.60)
[2017-06-28] MEDS ORDERED: Potassium Chlor TAB* 20 MEQ TAB.ER PO ONE (16:10)
[2017-06-28 18:14] LABS: Urine Bilirubin Negative (Negative); Urine Glucose Negative (Negative); Urine Nitrite Negative (Negative)
[2017-06-28 18:57] VITALS: BP 150/79
--- NOTE | 2017-06-30 18:42 | ED ---
Masoud Alejandra Angela, scribed for David Cee MD on 06/28/17 at 1458 . HPI Chest Pain - HPI Summary HPI Summary: This pt is a 52 y/o female [facility]/o [facility] chest [facility]. Pt describes his chest pain as "tightness" and sharp. She additionally notes high blood pressure. Pt denies nausea, vomiting, SOB. She states her chest pain began as she was leaving pain management. Pt is on pain management and takes oxycodone for her left knee pain. Pt is on anti-hypertensive medications, once a day. She notes she took her BP medication today. Pt states she has had high blood pressure for years. - History of Current Complaint Chief Complaint: EDChestPainROMI Time Seen by Provider: 06/28/17 14:45 Hx Obtained From: Patient Onset/Duration: Started Hours Ago, Still Present Timing: Lasting Hours Pain Intensity: 0 Chest Pain Location: Mid Sternal Chest Pain Radiates: No Character: Sharp/Stabbing, Tightness Associated Signs and Symptoms: Positive: Chest Pain. Negative: Shortness of Breath, Nausea, Vomiting - Additional Pertinent History Primary Care Physician: [id number] - Allergy/Home Medications Allergies/Adverse Reactions: Allergies Allergy/AdvReac Type Severity Reaction Status Date / Time No Known Allergies Allergy Verified 06/28/17 12:54 PMH/Surg Hx/FS Hx/Imm Hx Endocrine/Hematology History: Denies: Hx Diabetes Cardiovascular History: Reports: Hx Hypertension Denies: Hx Pacemaker/ICD Respiratory History: Reports: Hx Asthma GI History: Reports: Hx Gall Bladder Disease History: Denies: Hx Renal Disease Musculoskeletal History: Reports: Hx Arthritis Sensory History: Reports: Hx Contacts or Glasses - glasses Denies: Hx Hearing Aid Opthamlomology History: Reports: Hx Contacts or Glasses - glasses Neurological History: Reports: Hx Headaches Psychiatric History: Reports: Hx Anxiety - on meds, Hx Depression Denies: Hx Panic Disorder - Surgical History Surgery Procedure, Year, and Place: LT KNEE - Xs 2 PATELLA REPAIR; Cholecystectomy July 2016 at [facility] Hx Anesthesia Reactions: No Infectious Disease History: No Infectious Disease History: Denies: Traveled Outside the [place] in Last 30 Days - Family History Known Family History: Positive: Cardiac Disease, Diabetes, Other - [place] - Social History Alcohol Use: None Substance Use Type: Reports: None Smoking Status (MU): Never Smoked Tobacco Review of Systems Constitutional: Other - high blood pressure Negative: Fever, Chills Eyes: Negative Positive: Chest Pain Negative: Shortness Of Breath Negative: Vomiting, Nausea Musculoskeletal: Negative Skin: Negative Neurological: Negative All Other Systems Reviewed And Are Negative: Yes Physical Exam - Summary Physical Exam Summary: VITAL SIGNS: Reviewed. GENERAL: Patient is a well-developed and nourished female who is lying comfortable in the stretcher. Patient is not in any acute respiratory distress. HEAD AND FACE: No signs of trauma. No ecchymosis, hematomas or skull depressions. No sinus tenderness. EYES: PERRLA, EOMI x 2, No injected conjunctiva, no nystagmus. EARS: Hearing grossly intact. Ear canals and tympanic membranes are within normal limits. MOUTH: Oropharynx within normal limits. NECK: Supple, trachea is midline, no adenopathy, no JVD, no carotid bruit, no c- spine tenderness, neck with full ROM. CHEST: Symmetric, no tenderness at palpation LUNGS: Clear to auscultation bilaterally. No wheezing or crackles. CVS: Regular rate and rhythm, S1 and S2 present, no murmurs or gallops appreciated. ABDOMEN: Soft, non-tender. No signs of distention. No rebound no guarding, and no masses palpated. Bowel sounds are normal. EXTREMITIES: FROM in all major joints, no edema, no cyanosis or clubbing. NEURO: Alert and oriented x 3. No acute neurological deficits. Speech is normal and follows commands. SKIN: Dry and warm Triage Information Reviewed: Yes Vital Signs On Initial Exam: Initial Vitals Temp Pulse Resp BP Pulse Ox 98.4 F 97 20 194/102 97 06/28/17 14:38 06/28/17 14:38 06/28/17 14:38 06/28/17 14:38 06/28/17 14:38 Vital Signs Reviewed: Yes Diagnostics - Vital Signs Vital Signs Temp Pulse Resp BP Pulse Ox 06/28/17 14:38 98.4 F 97 20 194/102 97 - Laboratory Result Diagrams: 06/28/17 15:00 06/28/17 15:00 Lab Statement: Any lab studies that have been ordered have been reviewed, and results considered in the medical decision making process. - Radiology Chest XR Xray Interpretation: No Acute Changes - IMPRESSION: No radiographic evidence of acute cardiopulmonary disease. ED physician has reviewed this radiology report and agrees. Radiology Interpretation Completed By: Radiologist - EKG 1457 Cardiac Rate: NL EKG Rhythm: Sinus Rhythm - at 76 bpm EKG Interpretation: No ST elevation. Normal axis. EKG Comparison: No Significant Change - unchanged from prior EKG done on . Chest Pain Course/Dx - Course Assessment/Plan: This pt is a 52 y/o female presenting to [facility] c/o intermittent chest pain. Pt describes his chest pain as "tightness" and sharp. She additionally notes high blood pressure. Pt denies nausea, vomiting, SOB. She states her chest pain began as she was leaving pain management. Pt is on pain management and takes oxycodone for her left knee pain. Pt is on anti- hypertensive medications, once a day. She notes she took her BP medication today. Pt states she has had high blood pressure for years. Test results without any significant abnormalities. Troponin 1 is 0.00 and troponin 2 is 0.00. Pt was give labetalol for high blood pressure and GI cocktail. The blood pressure before discharge is 139/91 and was instructed to continue taking her anti-hypertensive medications. The pt was given a GI cocktail and her epigastric burning resolved. Therefore, the pt will be discharged to home with follow up from her PCP. The pt was instructed to return to the ED for any worsening or new symptoms. Pt is hemodynamically stable, alert and oriented x3. - Diagnoses Provider Diagnoses: Uncontrolled hypertension, Atypical chest pain, GERD (gastroesophageal reflux disease) Discharge - Discharge Plan Condition: Stable Disposition: HOME Patient Education Materials: Chest Pain (ED), Gastroesophageal Reflux Disease ( ED), Chronic Hypertension (ED) Referrals: Nolan Marrero MD [Primary Care Provider] - Additional Instructions: Continue taking your anti-hypertensive medication. Please follow up with your primary care provider. RETURN TO THE ED FOR ANY WORSENING OR NEW SYMPTOMS. The documentation as recorded by the Masoud ramos Angela accurately reflects the service I personally performed and the decisions made by , David Cee MD.
== END 2017-06-28 19:06 | disposition home or self-care (01) ==
LOC: ED 14:37
DX: I10 Essential (primary) hypertension (principal); K21.9 Gastro-esophageal reflux disease without esophagitis; R07.89 Other chest pain
CPT/HCPCS: 36415; 71020; 80053; 81003; 82550; 83880; 84436; 84443; 84484; 85025; 93005; 96374; 99283; A9270-GY

== ENCOUNTER 2018-01-24 10:00 | Inpatient (IN) | payer OTHER ==
--- NOTE | 2018-01-11 13:36 | HP ---
HISTORY AND PHYSICAL: DATE OF ADMISSION/SURGERY: 01/25/18 DATE OF OFFICE VISIT: 01/11/18 SURGEON: Kristy Herrera MD * (DICTATED BY MARIPOSA CORRAL) PROCEDURE: Left total knee arthroplasty. CHIEF COMPLAINT: Left knee pain. HISTORY OF PRESENT ILLNESS: Ms. Pimentel is a 52-year-old female with continued complaints of left knee pain. She has failed conservative management, elected to proceed with a left total knee arthroplasty, which is scheduled for 01/25/[address] Herrera. PAST MEDICAL HISTORY: Hypertension, depression, anxiety, and asthma. PAST SURGICAL HISTORY: Cholecystectomy, left knee surgery x2. CURRENT MEDICATIONS: 1. Chlorthalidone 25 mg daily. 2. Symbicort inhaler as needed. 3. Zyrtec Allergy 10 mg every morning. 4. Lisinopril 40 mg daily. 5. Amlodipine 10 mg daily. 6. Colace as needed. 7. Ventolin HFA as needed. 8. Sertraline 50 mg every day. 9. Ibuprofen as needed. 10. Metoprolol 100 mg daily. 11. Wellbutrin 150 mg twice a day. ALLERGIES: No known drug allergies. FAMILY HISTORY: Cancer, diabetes, and heart disease. SOCIAL HISTORY: She is a 52-year-old female, she lives with her partner. She does not smoke, use drugs or alcohol. REVIEW OF SYSTEMS: A complete 14-point review of systems was reviewed with the patient. It was positive for asthma. She denies a history of DVT, PE, hepatitis, HIV, or anesthesia problems. PHYSICAL EXAMINATION GENERAL: She is well developed, well nourished, in no acute distress. VITAL SIGNS: She stands 67 inches tall, weighs 225 pounds. Her blood pressure is 132/88 and her heart rate is 72. HEENT: Normocephalic, atraumatic. NECK: Supple. No palpable lymph nodes. PULMONARY: The lungs are clear to auscultation bilaterally. CARDIO: Regular rate and rhythm. Strong S1, S2. ABDOMEN: Soft, nontender, nondistended. NEUROLOGICAL: She is alert and oriented x3. MUSCULOSKELETAL: Left lower extremity: The skin is intact. There are no open wounds or abrasions. There is a well-healed scar over the left knee. She has a 12- degree valgus deformity. Her range of motion is 10 to 120 degrees of flexion with patellofemoral crepitus. There is MCL laxity with a questionable endpoint. 5/5 lower extremity strength, 2+ dorsalis pedis pulses, and intact sensation. ASSESSMENT AND PLAN: Ms. Pimentel is a 52-year-old female with complaints of left knee pain due to severe end-stage osteoarthritis. She has failed conservative treatment and elected to proceed with a left total knee arthroplasty, which is scheduled for 01/25/[address] Herrera discussed the risks and benefits of the surgery at today's visit and all of her questions were answered. She will follow up with Dr. Herrera 2 weeks after the surgery. MARIPOSA CORRAL [id number]/CPS #: [id number] MTDD
[2018-01-24] MEDS ORDERED: Buffered Lidocaine 0.9% SYRIN* 5 ML/SYR SYRINGE INTRADERM ONE (14:00)
[2018-01-25] MEDS ORDERED: Acetaminophen TAB* 325 MG PO ONE (06:00)
[2018-01-25] MEDS ORDERED: Gabapentin CAP(*) 300 MG PO ONE (06:00)
[2018-01-25] MEDS ORDERED: Gabapentin CAP(*) 300 MG ONE (09:30)
[2018-01-25] MEDS ORDERED: Acetaminophen TAB* 325 MG ONE (09:30)
[2018-01-25] MEDS ORDERED: ceFAZolin 2 GM PREMIX (*) 2 GM/50 ML BAG IVPB ONE (09:31)
[2018-01-25] MEDS ORDERED: Buffered Lidocaine 0.9% SYRIN* 5 ML/SYR SYRINGE ONE (09:31)
[2018-01-25] MEDS ORDERED: Tranexamic Acid 1,000 MG/10 ML 1,000 MG in NS 0.9% 100 ML* 100 ML IV ONE (10:00)
[2018-01-25] MEDS ORDERED: fentaNYL* 50 MCG/ML 2 ML VIAL (100 MCG VIAL) ONE ×2 (10:42→12:40)
[2018-01-25] MEDS ORDERED: Midazolam* 1 MG/ML 5 ML VIAL (5 MG) ONE (10:42)
[2018-01-25] MEDS ORDERED: Bupivacaine 0.5% W/EPI SDV* 10 ML VIAL INJ ONE ×2 (11:30→11:47)
[2018-01-25] MEDS ORDERED: Dexamethasone IV* 4 MG/ML 1 ML (4 MG) ONE (11:55)
[2018-01-25] MEDS ORDERED: Propofol* 10 MG/ML 20 ML BTL IV PUSH ONE (11:55)
[2018-01-25] MEDS ORDERED: Famotidine IV* 10 MG/ML 2 ML (20 mg) ONE (11:55)
[2018-01-25] MEDS ORDERED: Lidocaine 2% PF * 5 ML VIAL ONE (11:56)
[2018-01-25] MEDS ORDERED: Cisatracurium* 2 MG/ML MDV 5 ML ONE (11:57)
[2018-01-25] MEDS ORDERED: Naloxone* 0.4 MG/ML 1 ML VIAL IV PRN (12:57)
[2018-01-25] MEDS ORDERED: Levalbuterol 0.63MG/3ML NEB* UNIT OF USE INH PRN (12:57)
[2018-01-25] MEDS ORDERED: HYDROcodone/ACETAMIN 5-325 MG* 1 TAB PO PRN ×2 (12:57)
[2018-01-25] MEDS ORDERED: Acetaminophen TAB* 325 MG PO PRN ×2 (12:57→14:34)
[2018-01-25] MEDS ORDERED: HYDROmorphone INJ* 0.5 MG/0.5 ML SYRINGE IV PRN (12:57)
[2018-01-25] MEDS ORDERED: Ondansetron INJ* 2 MG/ML VIAL IV PRN ×2 (12:57→14:34)
[2018-01-25] MEDS ORDERED: Ondansetron ODT TAB* 4 MG PO PRN (12:57)
[2018-01-25] MEDS ORDERED: Ketorolac INJ* 30 MG/ML 1 ML VIAL IV PRN (12:57)
[2018-01-25] MEDS ORDERED: diPHENhydraMINE IV* 50 MG/ML 1 ml VIAL (BENADRYL) IV PRN ×2 (12:57→14:34)
[2018-01-25] MEDS ORDERED: DiMENhydriNATE IV* 50 MG/ML VIAL IV PUSH PRN (12:57)
[2018-01-25] MEDS ORDERED: fentaNYL* 50 MCG/ML 2 ML VIAL (100 MCG VIAL) IV PRN (12:57)
[2018-01-25] MEDS ORDERED: Scopolamine 1.5 mg* PATCH TRANSDERM PRN (12:57)
[2018-01-25] MEDS ORDERED: PROCHLORPERAZINE INJ 5 MG/ML 2 ML VIAL IV PRN (12:57)
[2018-01-25] MEDS ORDERED: Nalbuphine* 10 MG/ML 1 ML VIAL IV PRN (12:57)
[2018-01-25] MEDS ORDERED: HYDROmorphone INJ* 0.5 MG/0.5 ML SYRINGE ONE (13:25)
[2018-01-25] MEDS ORDERED: Morphine VIAL* 4 MG/ML VIAL (1 ml vial) IV PRN (14:34)
[2018-01-25] MEDS ORDERED: Bisacodyl SUPP* 10 MG SUPP PR PRN (14:34)
[2018-01-25] MEDS ORDERED: Cyclobenzaprine TAB* 10 MG PO PRN (14:34)
[2018-01-25] MEDS ORDERED: oxyCODONE/Acetamin 5/325 MG* TAB PO PRN (14:34)
[2018-01-25] MEDS ORDERED: Ondansetron TAB* 4 MG PO PRN (14:34)
[2018-01-25] MEDS ORDERED: Polyethylene Glycol 3350* 17 GM PACKET PO PRN (14:34)
[2018-01-25] MEDS ORDERED: Magnesium Hydroxide LIQ* 30 ML UDC PO PRN (14:34)
[2018-01-25] MEDS ORDERED: Albuterol HFA INHALER* 8 gm MDI INH PRN (14:38)
--- NOTE | 2018-01-25 15:12 | RAD ---
INDICATION: Left knee arthroplasty COMPARISON: December 21, 2017 TECHNIQUE: AP and crosstable lateral portable views were obtained. FINDINGS: There is left knee arthroplasty. The prosthetic components appear well seated. There is a cooling jacket. IMPRESSION: INTERVAL LEFT KNEE ARTHROPLASTY.
[2018-01-25] MEDS ORDERED: oxyCODONE/Acetamin 5/325 MG* TAB ONE (15:17)
[2018-01-25] MEDS ORDERED: Ondansetron INJ* 2 MG/ML VIAL ONE (15:22)
[2018-01-25] MEDS ORDERED: Albuterol 2.5 MG/3 ML NEB.SOL* (0.083%) INH PRN (15:27)
[2018-01-25] MEDS: oxyCODONE TAB* 5 MG TAB PO PRN ×2 (16:50→20:55)
[2018-01-25] MEDS ORDERED: Warfarin TAB(*) 6 MG PO ONE (17:00)
[2018-01-25 18:37] LABS: Urine Appearance Clear; Urine Blood Negative (Negative); Urine Color Yellow; Urine Ketones Trace (Negative); Urine Protein Negative (Negative); Urine Specific Gravity 1.021 (1.010-1.030); Urine Urobilinogen Negative (Negative)
[2018-01-25] MEDS: buPROPion SR TAB.SR* 150 MG PO SCH (20:55)
[2018-01-25] MEDS: Docusate CAP* 100 MG PO SCH (20:55)
[2018-01-25] MEDS: Magnesium Hydroxide LIQ* 30 ML UDC PO SCH (20:56)
[2018-01-25] MEDS: Mometasone/Formoter 100/5 MDI INH SCH (20:56)
[2018-01-25] MEDS: ceFAZolin 1 GM in Dextrose (*) 1 GM/50 ML BAG IVPB SCH (20:58)
[2018-01-25] MEDS: oxyCODONE/Acetamin 5/325 MG* TAB PO PRN (23:21)
--- NOTE | 2018-01-26 02:08 | OP ---
OPERATIVE REPORT: DATE OF OPERATION: 01/25/18 DATE OF : 67 ATTENDING SURGEON: Kristy Herrera MD FOOD BROKER: MARIPOSA Robelro Ms. did help throughout the procedure with preparation of the leg, wound retraction, manipulation of the knee, and wound closure. ANESTHESIOLOGIST: Dr. Adams. ANESTHESIA: General. PRE-OP DIAGNOSIS: Severe end-stage degenerative osteoarthritis of the left knee joint. POST-OP DIAGNOSIS: Severe end-stage degenerative osteoarthritis of the left knee joint. OPERATIVE PROCEDURE: Left total knee arthroplasty. TOURNIQUET TIME: 52 minutes. ESTIMATED BLOOD LOSS: 300 cc. COMPLICATIONS: None. SPECIMENS: Bone and cartilage from the left knee joint sent to Pathology. HARDWARE USED: This is cemented [employer]hew total knee arthroplasty hardware. Two packages of Simplex bone cement were used. For the femur, a left size 5 narrow Oxinium Legion femoral component. For the tibia, a size 3 left Hue II tibial base plate. For the insert, an 11-mm posterior stabilized articular insert size 3- 4, and for the patella a 32-mm 3 peg all poly patella with 7.5 thickness. BRIEF HISTORY/INDICATIONS: Ms. Pimentel is a 52-year-old female with years of increasingly severe left knee pain. She had an unspecified injury as a child. For the last 5 years, she has developed severe pain. Radiographs showed severe bone-on- bone arthritis. She failed conservative treatment with anti- inflammatories, pain medications, intraarticular injections, and physical therapy. Due to continued pain and decreased quality of life, the patient elected to undergo left total knee arthroplasty. Informed consent was obtained from the patient. She understood the risks of surgery included, but were not limited to bleeding, infection, damage to nearby structures, continued pain, need for further surgery, intraoperative fracture, nerve palsy, hardware failure or loosening, knee stiffness, loss of motion, stroke, heart attack, blood clot, and . She wished to proceed. INTRAOPERATIVE FINDINGS: Intraoperatively, the patient was noted to have remarkable osteopenia involving the femur and tibial bone. She was also noted to have extreme deformation of the patella. There was tricompartmental full thickness loss of cartilage. The patient had significant 25 degrees flexion contracture, which was noted at the beginning of the case. By the end of the case, the patient was brought out into full extension, but significant hamstring tightness and contracture was noted throughout the case. DESCRIPTION OF PROCEDURE: Ms. Pimentel was identified in the preanesthesia unit. Her left lower extremity was marked as the correct operative side. Informed consent was signed and placed in the chart. The patient was taken to the operating room and placed under general anesthesia. A Cortez catheter was placed. Tourniquet was placed on the left thigh. The left lower extremity was prepped and draped in the usual sterile fashion. Preop time-out was made to correctly identify the patient, side and site. Appropriate perioperative antibiotics were given within 1 hour of incision. Tourniquet was inflated and total tourniquet time for this procedure was 52 minutes. A midline incision was made extending her prior incision. Careful dissection down to the extensor mechanism was performed. A new 10 blade was used to make a standard medial parapatellar arthrotomy. The patella was subluxed laterally. Electrocautery was used to elevate the soft tissue off the superomedial tibia. The knee was flexed up. The anterior horn of the lateral meniscus and ACL were sharply released. A drill was used to enter the distal femur. Intramedullary distal femoral cutting guide was pinned on the distal femur. Oscillating saw was used to make the appropriate distal femoral cut. External rotation guide was pinned on the distal femur. The distal femur was sized to a size 5. A size 5 multi-cutting jig was pinned on the distal femur. Oscillating saw was used to make the appropriate 4 chamfer cuts. The PCL was completely released. The tibia was subluxed anteriorly. Extramedullary tibial cutting guide was used to make a proximal tibial cut perpendicular to the mechanical axis of the tibia. Oscillating saw was used to make the cut. The bone was carefully removed. The knee was brought out into full extension. The spacer block had good fit. There was some lateral tightness and a 15 blade was used to perform a minimal pie-crusting technique. Medial and lateral ligamentous balancing was improved. Flexion and extension gaps were equal. The knee was flexed up. A lamina utility division project manager was placed both medially and laterally. Any remaining meniscus was carefully removed using electrocautery. Curved osteotome was used to remove any posterior osteophytes and there was a significant amount of this. Next, a tibial tray and drop edenilson were placed and confirmed a satisfactory tibial cut. A left size 5 narrow femoral trial was impacted on to the distal femur and had good fit. The box for the posterior stabilized implant was prepared using a reamer and box cut osteotome. Size 3 tibial tray trial with a 9 mm insert trial was placed and the knee was taken through a range of motion. The knee had full extension to 130 degrees of flexion with satisfactory patellofemoral tracking. The patella was everted. The patella had extreme deformation. Oscillating saw was used to carefully remove 7 mm of bone and cartilage. The patella was sized to a size 32. Three peg holes were drilled through the guide. Trial 32 patella was placed and the knee was taken through a range of motion. There was satisfactory patellofemoral tracking. All trials were carefully removed. The tibia was subluxed anteriorly and sized to a size 3. Proximal tibia was prepared using a size 3 keel punch. All bony cut surfaces were copiously irrigated with sterile saline and dried. Significant osteopenia per the patient's age was noted involving the medial femoral condyle and medial tibial plateau. Final implants were cemented into place, starting with the tibia followed by the femur and last the patella. An 11-mm insert trial was placed and the knee was taken out to full extension. Tourniquet was turned down at 52 minutes. The knee was copiously irrigated with sterile saline and electrocautery was used to obtain meticulous hemostasis. Once the cement had fully cured, the insert trial was removed. Any excess cement was carefully removed from around the hardware and capsule. Final insert chosen was an 11 mm posterior stabilized Hue II articular insert size 3-4. This was locked into position on the tibial tray. Stability of the insert was checked and rechecked and noted to be stable. The knee was copiously irrigated with sterile saline. The extensor mechanism was closed using interrupted #1 Vicryl. The rest of the incision was closed in a layered fashion using 0 and 2-0 Vicryl. Skin was closed using running 3-0 nylon. Sterile Xeroform, 4x4's, and Webril were used to cover the incision. Amilcar wrap and cold packs were placed over this. The patient's general anesthesia was reversed without difficulty. She was taken to the PACU in stable condition. Intended weightbearing will be weightbearing as tolerated. Intended DVT prophylaxis will be Coumadin with the Lovenox bridge. [id number]/[facility] #: [id number] MUMTAZ
[2018-01-26] MEDS: ceFAZolin 1 GM in Dextrose (*) 1 GM/50 ML BAG IVPB SCH ×2 (03:38→11:39)
--- NOTE | 2018-01-26 03:48 | CONS ---
CC: Dr. Nolan Marrero * CONSULTATION REPORT: DATE OF CONSULT: 01/25/18 PRIMARY CARE PROVIDER: Dr. Nolan Marrero. MY ATTENDING WHILE IN THE HOSPITAL: Dr. Valentina Francois. CONSULTING PROVIDER: Dr. Kristy Herrera. REASON FOR CONSULT: Comanagement of comorbid medical conditions. HISTORY OF PRESENT ILLNESS: Ms. Pimentel is a 52-year-old female with past medical history significant for hypertension, asthma, and osteoarthritis, who is status post a left knee total arthroplasty. The patient states that the pain to her leg is an aching pain and is 10/10 at the current time, worse with movement. The patient is still very lethargic from surgery. The patient denies chest pain, shortness of breath. The patient had one episode of vomiting , but has no residual nausea. The patient denies palpitations, dizziness, fevers, chills or abdominal pain. The patient is having intermittent diarrhea since she was treated with Augmentin for a sinus infection approximately 1 month ago. The patient was also treated with presumably fosfomycin 1 week ago for dysuria. The patient states this did not help to clear off her dysuria. The patient has had frequent UTIs in the past. The patient did not take any recent xclw-[id number] pain killers or aspirin. The patient took all of her blood pressure medications this morning. The patient uses her albuterol inhaler very frequently, but uses her Symbicort every day. The patient had an estimated blood loss of approximately 300 mL and had general anesthesia with a nerve block, which has worn off entirely according to the patient by the time I examined her. PAST MEDICAL HISTORY: Hypertension, depression/anxiety, asthma, NAFLD, osteoarthritis. PAST SURGICAL HISTORY: Cholecystectomy, left knee surgery x2. CURRENT MEDICATIONS: 1. Hydrocodone/acetaminophen 5/325 one to two tabs q.8 hours as needed for pain. 2. Sulfacetamide sodium 10% two drops to the left eye 4 times daily. 3. Chlorthalidone 25 mg p.o. daily. 4. Guaifenesin with Codeine 110 mL by mouth every evening with water as needed for cough. 5. Symbicort 80/4.5 two puffs twice daily. 6. Zyrtec 10 mg p.o. daily. 7. Lisinopril 40 mg p.o. daily. 8. Amlodipine 10 mg p.o. daily. 9. Colace 100 mg 1 tab by mouth 2 times daily as needed. 10. Ventolin inhaler 108 mcg 2 puffs by mouth 4 times daily as needed. 11. Sertraline 50 mg p.o. daily. 12. Ibuprofen 600 mg 3 times a day as needed. 13. Metoprolol succinate 100 mg p.o. daily. 14. Bupropion 150 mg 1 tab by mouth twice a day. 15. Vitamin C 1 by mouth daily. ALLERGIES: No known drug allergies. FAMILY HISTORY: The patient's mother had hypertension. The patient's father had gout and diabetes and is currently . The patient's maternal uncle had unknown type of cancer as well as heart disease. The patient's paternal uncle had Parkinson's disease. SOCIAL HISTORY: The patient lives with her partner. The patient does not smoke , use drugs, or alcohol. 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 The patient would like her surrogate decision maker to be her partner , Jen Holman. REVIEW OF SYSTEMS: A 14-point review of systems was reviewed, it is negative except as above. The patient has no history of blood clots. PHYSICAL EXAM: General: The patient is a 52-year-old female, who appears her stated age and sitting comfortably in bed, in no acute distress. Vital Signs: At the time of evaluation, temperature 99.1, pulse rate 94, respiratory rate 20 , oxygen saturation 97% on 2 L, blood pressure 119/80. HEENT: Head: Normocephalic, atraumatic. Sclerae anicteric. No conjunctival injection. Nasal mucosa moist. Oral mucosa moist. No oropharyngeal erythema, discharge, or exudate. Neck: Supple, nontender. No lymphadenopathy. No carotid bruit auscultated. No JVD. Cardiac: Regular rate and rhythm. No clicks, murmurs, gallops, or rubs. Pulses 2+ in bilateral dorsalis pedis, posterior tibialis, and radial areas. No lower extremity edema or calf tenderness bilaterally. Respiratory: Clear to auscultation bilaterally. No wheezes, rales, or rhonchi. Good air exchange bilaterally. Abdomen: Soft, nontender, nondistended. Bowel sounds present and hypoactive in all 4 quadrants. No hepatosplenomegaly. No abdominal bruits auscultated. No hepatojugular reflux. Genitourinary: Cortez catheter in place. No CVA tenderness. No suprapubic tenderness. Skin: Clean, dry, and intact. No rash. Left knee incision covered with bulky dressing. Neuro: Cranial nerves II through XII intact. No focal deficits. Alert and oriented x3. Psychiatric: Pleasant and cooperative. DIAGNOSTIC STUDIES/LAB DATA: Laboratory data preoperatively, white blood cell count 9.3, hemoglobin 14.5, hematocrit 91, RDW 13, platelet count 387. INR 0.87. APTT 32.9. Sodium 137, potassium 3.5, chloride 97, carbon dioxide 30, anion gap 10, BUN 15, creatinine 0.53, glucose 85, calcium 9.6. AST 11, ALT 8, alkaline phosphatase 83. Protein 7.2. Albumin 4.2, globulin 3.5. Urine was yellow, clear with positive ascorbic acid. ASSESSMENT AND PLAN/IMPRESSION: Ms. Pimentel is a 52-year-old female with past medical history significant for hypertension and asthma who is status post left total knee arthroplasty and is doing well except for relatively uncontrolled pain. 1. Postoperative state, management per primary team. Pain control regimen per orders. Monitor hemoglobin and hematocrit as well as platelets daily. Cortez will be removed in the morning. Physical therapy and occupational therapy. 2. Hypertension. The patient is currently normotensive. We will continue the patient's metoprolol as well as her lisinopril. We will resume amlodipine as needed for control of hypertension. The patient also has chlorthalidone listed on her medication list. This could also be reintroduced as needed for high blood pressure. Given the patient's 4-medication regimen, outpatient assessment for secondary cause of hypertension such as renal artery stenosis or primary hyperaldosteronism should be entertained given the patient's body habitus. 3. Asthma. The patient uses her albuterol inhaler infrequently. The patient will have an albuterol nebulizer available as needed. The patient will continue with her Symbicort while in the hospital. 4. Depression and anxiety. Continue bupropion. 5. DVT prophylaxis: Lovenox to warfarin as per primary team. 6. FEN: The patient will have fluids per Orthopedics and a regular unrestricted diet. 7. Code status: The patient would like to be a full code. The patient's surrogate decision maker is her partner, Jen Holman. 8. Disposition: Disposition per primary team. TIME SPENT: Approximately 60 minutes were spent on this consultation, 30 of which was spent [id number] with the patient obtaining history and physical and discussing the treatment plan. MARIPOSA ZUNIGA [id number]/[facility] #: [id number] MUMTAZ
[2018-01-26] MEDS: oxyCODONE/Acetamin 5/325 MG* TAB PO PRN ×4 (03:55→20:08)
[2018-01-26] MEDS: oxyCODONE TAB* 5 MG TAB PO PRN ×4 (04:58→23:33)
[2018-01-26 06:16] LABS: Hematocrit 33 % (35-47); Hemoglobin 11.3 g/dl (12.0-16.0); Mean Platelet Volume 7.8 um3 (7.4-10.4); Platelet Count 296 10^3/ul (150-450)
[2018-01-26 06:24] LABS: INR 1.03 (0.77-1.02)
[2018-01-26 06:34] LABS: EGFR Non-African American 130.1 (>60)
[2018-01-26] MEDS: Magnesium Hydroxide LIQ* 30 ML UDC PO SCH ×2 (08:21→20:08)
[2018-01-26] MEDS: Mometasone/Formoter 100/5 MDI INH SCH ×2 (08:21→20:07)
[2018-01-26] MEDS: Docusate CAP* 100 MG PO SCH ×2 (08:22→20:07)
[2018-01-26] MEDS: buPROPion SR TAB.SR* 150 MG PO SCH ×2 (08:22→20:07)
[2018-01-26] MEDS: Metoprolol Succinate XL TAB* 50 MG PO SCH (08:22)
[2018-01-26] MEDS: Lactobacillus Acidophilus* 1 TAB PO SCH (08:22)
[2018-01-26] MEDS: Lisinopril TAB* 10 MG PO SCH (08:22)
[2018-01-26] MEDS: Venlafaxine EXT RELEASE CAP* 75 MG PO SCH (08:22)
[2018-01-26] MEDS: Potassium Chlor TAB* 20 MEQ TAB.ER PO SCH ×2 (10:00→20:08)
[2018-01-26] MEDS: Enoxaparin(*) 40 MG/0.4 ML SYR SUBCUT SCH (11:38)
--- NOTE | 2018-01-26 13:08 | PN ---
Progress Note - Progress Note Date of Service: 01/26/18 SOAP: Subjective: Pt is doing well. Pain is controlled. Progressing well with PT. Denies F/C, calf pain, CP/SOB. VSS overnight Objective: PE- 52 y/o WDWN F NAD, A&Ox3 LLE- dressing c/d/i, calf soft NT, +DF/PF, +2 DP pulse, SILT distally Vital Signs Temp Pulse Resp BP Pulse Ox 98.6 F 73 18 114/68 100 01/26/18 11:25 01/26/18 11:25 01/26/18 11:37 01/26/18 11:25 01/26/18 11:25 Laboratory Results - last 24 hr 01/25/18 01/26/18 01/26/18 18:15 05:58 05:58 Hgb 11.3 L Hct 33 L Plt Count 296 MPV 7.8 INR (Anticoag Therapy) 1.03 H Sodium Potassium Chloride Carbon Dioxide Anion Gap BUN Creatinine Est GFR ( Amer) Est GFR (Non-Af Amer) BUN/Creatinine Ratio Glucose Calcium Urine Color Yellow Urine Appearance Clear Urine pH 5.0 Ur Specific Chuckey 1.021 Urine Protein Negative Urine Ketones Trace A Urine Blood Negative Urine Nitrate Negative Urine Bilirubin Negative Urine Urobilinogen Negative Ur Leukocyte Esterase Negative Urine Glucose Negative Urine Ascorbic Acid * A 01/26/18 05:58 Hgb Hct Plt Count MPV INR (Anticoag Therapy) Sodium 135 Potassium 3.3 L Chloride 99 L Carbon Dioxide 27 Anion Gap 9 BUN 10 Creatinine 0.50 L Est GFR ( Amer) 157.4 Est GFR (Non-Af Amer) 130.1 BUN/Creatinine Ratio 20.0 Glucose 144 H Calcium 8.7 Urine Color Urine Appearance Urine pH Ur Specific Chuckey Urine Protein Urine Ketones Urine Blood Urine Nitrate Urine Bilirubin Urine Urobilinogen Ur Leukocyte Esterase Urine Glucose Urine Ascorbic Acid Assessment: POD 1 Left TKA Plan: WBAT LLE- cont PT/OT Cont pain mgmt low potassium given oral supplementation- will cont monitor Cont lovenox and coumadin- 8 mg tonight likely DC to home with outpt PT and blood draws if doing well
[2018-01-26] MEDS ORDERED: Warfarin TAB(*) 4 MG PO ONE (17:00)
[2018-01-27] MEDS: oxyCODONE/Acetamin 5/325 MG* TAB PO PRN ×4 (02:58→17:00)
[2018-01-27 05:36] LABS: Hematocrit 31 % (35-47); Hemoglobin 10.7 g/dl (12.0-16.0); Mean Platelet Volume 7.9 um3 (7.4-10.4); Platelet Count 262 10^3/ul (150-450)
[2018-01-27 05:51] LABS: INR 1.21 (0.77-1.02)
[2018-01-27 05:58] LABS: EGFR Non-African American 121.6 (>60)
[2018-01-27] MEDS: Magnesium Hydroxide LIQ* 30 ML UDC PO SCH ×2 (09:16→20:51)
[2018-01-27] MEDS: Metoprolol Succinate XL TAB* 50 MG PO SCH (09:16)
[2018-01-27] MEDS: Potassium Chlor TAB* 20 MEQ TAB.ER PO SCH (09:16)
[2018-01-27] MEDS: Mometasone/Formoter 100/5 MDI INH SCH ×2 (09:16→20:50)
[2018-01-27] MEDS: Lactobacillus Acidophilus* 1 TAB PO SCH (09:17)
[2018-01-27] MEDS: buPROPion SR TAB.SR* 150 MG PO SCH ×2 (09:17→21:19)
[2018-01-27] MEDS: Docusate CAP* 100 MG PO SCH ×2 (09:17→20:51)
[2018-01-27] MEDS: Venlafaxine EXT RELEASE CAP* 75 MG PO SCH (09:17)
[2018-01-27] MEDS: Lisinopril TAB* 10 MG PO SCH (09:17)
[2018-01-27] MEDS: oxyCODONE TAB* 5 MG TAB PO PRN (09:21)
--- NOTE | 2018-01-27 10:02 | PN ---
Subjective Date of Service: 01/27/18 Interval History: Pt feels well. Dis stairs with PT today. Plans to go home tomorrow Objective Active Medications: Acetaminophen (Tylenol Tab*) 650 mg PO Q4H PRN PRN Reason: PAIN OR TEMPERATURE Albuterol (Ventolin Hfa Inhaler*) 2 puff INH Q4H PRN PRN Reason: SOB/WHEEZING Albuterol (Ventolin 2.5 Mg/3 Ml Neb.Rina*) 2.5 mg INH Q4H PRN PRN Reason: SOB/WHEEZING Bisacodyl (Dulcolax Supp*) 10 mg [place] DAILY PRN PRN Reason: constipation Bupropion HCl (Wellbutrin Sr Tab*) 150 mg PO BID [facility] Last Admin: 01/27/18 09:17 Dose: 150 mg Cyclobenzaprine HCl (Flexeril Tab*) 10 mg PO TID PRN PRN Reason: SPASMS Last Admin: 01/26/18 15:12 Dose: 10 mg Diphenhydramine HCl (Benadryl Iv*) 12.5 mg IV Q6H PRN PRN Reason: PRURITIS Docusate Sodium (Colace Cap*) 100 mg PO BID [facility] Last Admin: 01/27/18 09:17 Dose: 100 mg Enoxaparin Sodium (Lovenox(*)) 40 mg SUBCUT Q24H [facility] Last Admin: 01/26/18 11:38 Dose: 40 mg Lactobacillus Rhamnosus (Lactobacillus Acidophilus*) 1 tab PO DAILY [facility] Last Admin: 01/27/18 09:17 Dose: 1 tab Lactulose (Lactulose*) 30 ml PO Q6H PRN PRN Reason: constipation Lisinopril (Prinivil Tab*) 30 mg PO QAM [facility] Last Admin: 01/27/18 09:17 Dose: 30 mg Magnesium Hydroxide (Milk Of Magnesia Liq*) 30 ml PO BID [facility] Last Admin: 01/27/18 09:16 Dose: 30 ml Magnesium Hydroxide (Milk Of Magnesia Liq*) 30 ml PO Q6H PRN PRN Reason: constipation Metoprolol Succinate (Toprol Xl Tab*) 50 mg PO QAM [facility] Last Admin: 01/27/18 09:16 Dose: 50 mg Mometasone Furoate/Formoterol Fumar (Dulera 100/5 Mdi*) 2 puff INH BID [facility] Last Admin: 01/27/18 09:16 Dose: Not Given Morphine Sulfate (Morphine Vial*) 2 mg IV Q2H PRN PRN Reason: PAIN Ondansetron HCl (Zofran Inj*) 4 mg IV Q6H PRN PRN Reason: nausea Last Admin: 01/25/18 21:37 Dose: 4 mg Ondansetron HCl (Zofran Tab*) 4 mg PO Q6H PRN PRN Reason: NAUSEA Oxycodone HCl (Roxycodone Tab*) 10 mg PO Q4H PRN PRN Reason: SEVERE PAIN Last Admin: 01/27/18 09:21 Dose: 10 mg Oxycodone/Acetaminophen (Percocet 5/325 Tab*) 2 tab PO Q4H PRN PRN Reason: PAIN Last Admin: 01/27/18 07:27 Dose: 2 tab Oxycodone/Acetaminophen (Percocet 5/325 Tab*) 1 tab PO Q4H PRN PRN Reason: PAIN Last Admin: 01/25/18 15:17 Dose: 1 tab Pharmacy Profile Note (Scopolamine Patch Remove*) 1 note PATCH OFF Q72H ONE Stop: 01/28/18 12:59 Pharmacy Profile Note (Coumadin Daily Reminder*) 1 note FOLLOW UP 1700 [facility] Last Admin: 01/26/18 17:21 Dose: 1 note Polyethylene Glycol/Electrolytes (Miralax*) 17 gm PO DAILY PRN PRN Reason: Constipation Potassium Chloride (Klor Con Er Tab*) 20 meq PO BID [facility] Last Admin: 01/27/18 09:16 Dose: 20 meq Venlafaxine HCl (Effexor Xr Cap*) 75 mg PO QAM [facility]; Protocol Last Admin: 01/27/18 09:17 Dose: 75 mg Vital Signs - 8 hr 01/27/18 01/27/18 01/27/18 02:25 02:56 02:58 Temperature 98.9 F Pulse Rate 85 Respiratory 16 18 18 Rate Blood Pressure 117/67 (mmHg) O2 Sat by Pulse 94 Oximetry 01/27/18 01/27/18 01/27/18 05:41 07:19 07:27 Temperature 97.9 F Pulse Rate 92 Respiratory 14 17 18 Rate Blood Pressure 102/68 (mmHg) O2 Sat by Pulse 96 Oximetry 01/27/18 01/27/18 01/27/18 08:00 09:13 09:21 Temperature Pulse Rate 85 Respiratory 20 18 Rate Blood Pressure 118/67 (mmHg) O2 Sat by Pulse Oximetry 01/27/18 09:25 Temperature Pulse Rate Respiratory 18 Rate Blood Pressure (mmHg) O2 Sat by Pulse Oximetry Oxygen Devices in Use Now: None Appearance: 52 yo F in nAD, AAox3 Eyes: No Scleral Icterus, PERRLA Ears/Nose/Mouth/Throat: NL Teeth, Lips, Gums, Mucous Membranes Moist Neck: NL Appearance and Movements; NL JVP, Trachea Midline Respiratory: Symmetrical Chest Expansion and Respiratory Effort, Clear to Auscultation Cardiovascular: NL Sounds; No Murmurs; No JVD, RRR Abdominal: NL Sounds; No Tenderness; No Distention Lymphatic: No Cervical Adenopathy Extremities: No Edema, No Clubbing, Cyanosis Skin: No Nodules or Sclerosis, - - left knee in cryo unit Neurological: Alert and Oriented x 3, NL Muscle Strength and Tone Result Diagrams: 01/27/18 05:16 01/27/18 05:16 Microbiology and Other Data: Microbiology 01/25/18 14:01 Urine Culture - Final Urine No Growth (<1,000 CFU/mL) Assess/Plan/Problems-Billing Assessment: 52 yo F with h/o HTN s/p left knee replacement - Patient Problems (1) History of left knee replacement Comment: as per DR. Herrera (2) HTN (hypertension) Comment: cont Lisinopril, lopressor controlled (3) DVT prophylaxis Comment: Lovenox, Coumadin Status and Disposition: Medicine consult. Thank you for consult Will sign off. Please call if needed
--- NOTE | 2018-01-27 11:11 | PN ---
Progress Note - Progress Note Date of Service: 01/27/18 SOAP: Subjective: Pt is doing well. Pain controlled. Progressing well with PT. Denies CP/SOB or F/ C Objective: PE- 52 y/o WDWN F NAD, A&O x3 LLE- dressing changed, inc c/d/i, +DF/PF ankle +2 DP pulse, SILT distally Vital Signs Temp Pulse Resp BP Pulse Ox 97.9 F 85 18 118/67 96 01/27/18 07:19 01/27/18 09:13 01/27/18 09:25 01/27/18 09:13 01/27/18 07:19 Laboratory Results - last 24 hr 01/27/18 01/27/18 01/27/18 05:16 05:16 05:16 Hgb 10.7 L Hct 31 L Plt Count 262 MPV 7.9 INR (Anticoag Therapy) 1.21 H Sodium 133 L Potassium 4.0 Chloride 96 L Carbon Dioxide 33 H Anion Gap 4 BUN 11 Creatinine 0.53 Est GFR ( Amer) 147.2 Est GFR (Non-Af Amer) 121.6 BUN/Creatinine Ratio 20.8 H Glucose 109 H Calcium 8.7 Assessment: POD 2 Left TKA UA- negative Plan: WBAT LLE- cont PT/OT Cont pain mgmt potassium improved, DC oral supplementation- Cont to monitor Cont lovenox and coumadin- 8 mg tonight DC to home tomorrow with outpt PT and blood draws
[2018-01-27] MEDS: Enoxaparin(*) 40 MG/0.4 ML SYR SUBCUT SCH (11:56)
[2018-01-27] MEDS: oxyCODONE SR TAB(*) 10 MG TAB.SR PO SCH ×2 (12:43→20:50)
[2018-01-27] MEDS ORDERED: Warfarin TAB(*) 4 MG PO ONE (17:00)
[2018-01-28 06:48] LABS: Hematocrit 30 % (35-47); Hemoglobin 10.3 g/dl (12.0-16.0); Mean Platelet Volume 7.8 um3 (7.4-10.4); Platelet Count 254 10^3/ul (150-450)
[2018-01-28 06:55] LABS: INR 1.72 (0.77-1.02)
[2018-01-28] MEDS: Lactobacillus Acidophilus* 1 TAB PO SCH (07:17)
[2018-01-28] MEDS: oxyCODONE SR TAB(*) 10 MG TAB.SR PO SCH (07:17)
[2018-01-28 07:18] LABS: EGFR Non-African American 121.6 (>60)
[2018-01-28] MEDS: Metoprolol Succinate XL TAB* 50 MG PO SCH (07:18)
[2018-01-28] MEDS: Lisinopril TAB* 10 MG PO SCH (07:18)
[2018-01-28] MEDS: Mometasone/Formoter 100/5 MDI INH SCH (07:18)
[2018-01-28] MEDS: Venlafaxine EXT RELEASE CAP* 75 MG PO SCH (07:19)
[2018-01-28] MEDS: Docusate CAP* 100 MG PO SCH (07:20)
[2018-01-28] MEDS: buPROPion SR TAB.SR* 150 MG PO SCH (07:20)
[2018-01-28] MEDS: Magnesium Hydroxide LIQ* 30 ML UDC PO SCH (07:20)
[2018-01-28 08:43] VITALS: BP 110/63
--- NOTE | 2018-01-28 08:59 | PN ---
Progress Note - Progress Note Date of Service: 01/28/18 SOAP: Subjective: []Patient seen at bedside. She states her pain is very well controlled with only soreness. Denies chest pain, shortness of breath, dizziness of nausea. Objective: [] Vital Signs Temp 98.3 F 01/28/18 07:46 Pulse 93 01/28/18 07:46 Resp 20 01/28/18 07:46 BP 110/63 01/28/18 07:46 Pulse Ox 97 01/28/18 07:46 Intake & Output 01/27/18 01/28/18 01/28/18 18:59 06:59 18:59 Intake Total 1035 700 240 Output Total 800 600 Balance 235 100 240 Intake: Oral 1035 700 240 Output: Urine 800 600 Other: Estimated Void Medium Date of Last Bowel 01/27/2018 Movement # Bowel Movements 1 3 Estimated Stool Amount Large Medium # Voids 3 Laboratory Last Values Hgb 10.3 g/dl (12.0-16.0) L 01/28/18 06:37 Hct 30 % (35-47) L 01/28/18 06:37 Plt Count 254 10^3/ul (150-450) 01/28/18 06:37 MPV 7.8 um3 (7.4-10.4) 01/28/18 06:37 INR (Anticoag Therapy) 1.72 (0.77-1.02) H 01/28/18 06:37 Sodium 134 mmol/L (135-145) L 01/28/18 06:37 Potassium 3.7 mmol/L (3.5-5.0) 01/28/18 06:37 Chloride 98 mmol/L (101-111) L 01/28/18 06:37 Carbon Dioxide 29 mmol/L (22-32) 01/28/18 06:37 Anion Gap 7 mmol/L (2-11) 01/28/18 06:37 BUN 12 mg/dL (6-24) 01/28/18 06:37 Creatinine 0.53 mg/dL (0.51-0.95) 01/28/18 06:37 Est GFR ( Amer) 147.2 (>60) 01/28/18 06:37 Est GFR (Non-Af Amer) 121.6 (>60) 07/09/18 06:37 BUN/Creatinine Ratio 22.6 (8-20) H 01/28/18 06:37 Glucose 97 mg/dL (70-100) 01/28/18 06:37 Calcium 8.6 mg/dL (8.6-10.3) 01/28/18 06:37 Urine Color Yellow 01/25/18 18:15 Urine Appearance Clear 01/25/18 18:15 Urine pH 5.0 (5-9) 01/25/18 18:15 Ur Specific Tensed 1.021 (1.010-1.030) 01/25/18 18:15 Urine Protein Negative (Negative) 01/25/18 18:15 Urine Ketones Trace (Negative) A 01/25/18 18:15 Urine Blood Negative (Negative) 01/25/18 18:15 Urine Nitrate Negative (Negative) 01/25/18 18:15 Urine Bilirubin Negative (Negative) 01/25/18 18:15 Urine Urobilinogen Negative (Negative) 01/25/18 18:15 Ur Leukocyte Esterase Negative (Negative) 01/25/18 18:15 Urine Glucose Negative (Negative) 01/25/18 18:15 Urine Ascorbic Acid * (Negative) A 01/25/18 18:15 General: Well appearing, NAD LLE:Left knee dressing CDI. Dressing changed, incision CDI without surrounding erythema. DF/PF intact. DP2+. Capillary refill less than two seconds distally. BL Calves supple and nontender without erythema, edema or palpable cords. Assessment: []POD 3 Left TKA Plan: WBAT LLE- cont PT/OT Cont pain mgmt Cont lovenox and coumadin-2 mg today DC home today ]
[2018-01-28] MEDS ORDERED: Scopolamine PATCH Remove* 1 NOTE MISC PATCH OFF ONE (12:58)
--- NOTE | 2018-01-29 09:03 | DS ---
AMENDED REPORT NOW INCLUDES COSIGNER DESIGNATION - ESIGNED BEFORE ADJUSTMENTS DISCHARGE SUMMARY: DATE OF ADMISSION: 01/25/18 DATE OF DISCHARGE: 01/28/18 PROVIDER: Dr. Kristy Herrera.* (DICTATED BY MARIPOSA MELVIN) OPERATIONS SUPPORT REPRESENTATIVE: MARIPOSA Roblero PRE-OP DIAGNOSIS: Severe end-stage degenerative osteoarthritis of the left knee joint. OPERATIVE PROCEDURE: Left total knee arthroplasty. HISTORY: Ms. Pimentel is a 52-year-old female with years of increasingly severe left knee pain. She failed conservative management and elected to undergo left total knee arthroplasty. HOSPITAL COURSE: Ms. Pimentel is a 52-year-old female who was admitted to [facility] on 01/25/18. She underwent a left total knee arthroplasty without complication. She recovered briefly in the PACU and then was transferred to the short-stay surgical unit in stable condition. She was followed by hospitalist service as well as Physical Therapy and Occupational Therapy during her stay. On postop day 1, the patient was well appearing, in no acute distress. Alert and oriented x3. Dressing clean, dry, and intact. Calves soft, nontender. Dorsiflexion and plantar flexion intact. 2+ dorsalis pedis pulse. Sensation intact to light touch distally. Potassium was low at 3.3. Postop day 2, dressing was changed. Incision clean, dry, intact. Dorsiflexion, plantar flexion intact. 2+ dorsalis pedis pulse. Sensation intact distally. Potassium improved to 4.0. Postop day 3, the patient is again well appearing, in no acute distress. The dressing was changed without any complications. Potassium at 3.7. Hemoglobin 10.3, hematocrit 30, INR 1.72. Vitals included temperature 98.3, pulse 93, respiratory rate 20, blood pressure 110/63, and pulse ox 97. The patient was deemed to be medically and orthopedically stable for discharge home. DISCHARGE MEDICATIONS: 1. Wellbutrin SR 150 mg p.o. b.i.d. 2. Lisinopril 30 mg p.o. q.a.m. 3. Metoprolol succinate 50 mg p.o. q.a.m. 4. Venlafaxine 75 mg p.o. q.a.m. 5. Albuterol inhaler 2 puffs inhaled q.4 hours p.r.n. 6. Cyclobenzaprine 10 mg p.o. t.i.d. p.r.n. 7. Docusate 100 mg p.o. b.i.d. p.r.n. 8. Percocet 5/325 one to two tabs every 4 to 6 hours p.r.n., max daily dose of 10. 9. Warfarin 2 mg tablets, take 1 to 3 tablets daily depending on INR dosing. DISCHARGE INSTRUCTIONS: Weightbearing as tolerated. Okay to shower after postop day 3. Do not submerge the wound. The patient will have INR blood draws on Mondays and . Continue home therapy exercises. Coumadin dosing based on her INR today 01/28/18 of 1.79. At 01/28/18, take 2 mg; , 2 mg; 01/30/18, 2 mg and then redraw INR on 01/31/18 for new dosing instructions. Pain control: Percocet 5/325 one to two tabs every 4 to 6. Follow up with Dr. Herrera in 10 to 14 days. MARIPOSA MELVIN [id number]/[facility] #: [id number] MUMTAZ
== END 2018-01-28 10:30 | disposition home or self-care (01) | DRG 302 ==
LOC: AA 01-25 09:30 → SSU 01-25 16:02
PROVIDERS: ADMIT Orthopaedic Surgery Adult Reconstructive Orthopaedic Surgery; ATTEND Orthopaedic Surgery Adult Reconstructive Orthopaedic Surgery
PROC: 0SRD069 Replacement of Left Knee Joint with Oxidized Zirconium on Polyethylene Synthetic Substitute, Cemented, Open Approach (ICD-10-PCS; principal; 2018-01-25 12:00)
DX: M17.12 Unilateral primary osteoarthritis, left knee (principal); F32.9 Major depressive disorder, single episode, unspecified; F41.9 Anxiety disorder, unspecified; M85.862 Other specified disorders of bone density and structure, left lower leg; M25.762 Osteophyte, left knee; J45.909 Unspecified asthma, uncomplicated; Z79.1 Long term (current) use of non-steroidal anti-inflammatories (NSAID); Z79.899 Other long term (current) drug therapy; Z80.9 Family history of malignant neoplasm, unspecified; Z83.3 Family history of diabetes mellitus; Z82.49 Family history of ischemic heart disease and other diseases of the circulatory system
CPT/HCPCS: 36415; 80048; 81003; 81025; 85014; 85018; 85049; 85610; 87086; 94640; A9270-GY; C1776; G8987-GO-CJ; G8988-GO-CJ; G8989-GO-CJ; J0690; J1100; J1170; J1650; J2250; J2405; J2704; J3010

== ENCOUNTER 2020-12-30 13:37 | Inpatient (IN) ==
[2020-12-30] MEDS ORDERED: HYDROmorphone 1 MG/1 ML SYRINGE IV SLOW PU ONE ×3 (14:48→16:06)
[2020-12-30 15:33] LABS: ABS Basophils 0.1 10^3/ul (0-0.2); ABS Lymphocytes 1.5 10^3/ul (1.0-4.8); ABS Monocytes 0.6 10^3/ul (0-0.8); ABS Neutrophils 10.8 10^3/ul (1.5-7.7); Eosinophil % 0.3 %; Hematocrit 38 % (35-47); Hemoglobin 12.8 g/dL (12.0-16.0); Lymphocyte % 11.4 %; Mean Corpuscular HGB Conc 34 g/dL (31-36); Mean Corpuscular Hemoglobin 31 pg (27-31); Mean Corpuscular Volume 92 fL (80-97); Mean Platelet Volume 8.3 fL (7.4-10.4); Platelet Count 287 10^3/uL (150-450); Red Blood Count 4.11 10^6 /uL (3.70-4.87); Red Cell Distribution Width 13 % (10-15)
[2020-12-30 15:43] LABS: Activated Partial Thrombo Time 27.4 seconds (26.0-38.0); INR 0.99 (0.82-1.09)
[2020-12-30 16:12] LABS: Albumin 3.9 g/dL (3.2-5.2); Albumin/Globulin Ratio 1.3 (1-3); EGFR African American 83.2 (>60); EGFR Non-African American 68.8 (>60); Globulin 3.1 g/dL (2-4); Potassium 3.3 mmol/L (3.5-5.0); Total Bilirubin 0.5 mg/dL (0.2-1.0)
[2020-12-30] MEDS ORDERED: oxyCODONE/Acetamin 5/325 mg TAB PO PRN (16:18)
[2020-12-30] MEDS ORDERED: HYDROmorphone 0.5 MG/0.5 ML SYRINGE IV SLOW PU PRN (16:32)
[2020-12-30] MEDS ORDERED: fentaNYL 100 mcg/2 ml 50 MCG/ML VIAL IV SLOW PU ONE (17:27)
[2020-12-30 18:29] LABS: Magnesium 1.8 mg/dL (1.9-2.7)
[2020-12-30] MEDS: Potassium Chloride LIQUID 20 MEQ/15 ML LIQUID PO SCH ×2 (20:52→21:06)
[2020-12-30] MEDS ORDERED: Potassium Chlor 20 meq TAB.ER PO SCH (21:00)
[2020-12-30] MEDS: HYDROmorphone 0.5 MG/0.5 ML SYRINGE IV SLOW PU PRN (22:52)
[2020-12-30] MEDS: Acetaminophen IV 1 GM/100ML 100 ML IVPB SCH (22:56)
[2020-12-30] MEDS: Fluticasone NASAL SPRAY 50MCG 16 gm SPRAY BTL INTRANASAL SCH (22:58)
[2020-12-31] MEDS: HYDROmorphone 0.5 MG/0.5 ML SYRINGE IV SLOW PU PRN ×2 (02:39→17:46)
[2020-12-31] MEDS: Acetaminophen IV 1 GM/100ML 100 ML IVPB SCH ×3 (03:55→23:57)
[2020-12-31 06:33] LABS: ABS Eosinophils 0.2 10^3/ul (0-0.6); ABS Lymphocytes 1.5 10^3/ul (1.0-4.8); ABS Monocytes 0.5 10^3/ul (0-0.8); ABS Neutrophils 5.4 10^3/ul (1.5-7.7); Eosinophil % 2.2 %; Hematocrit 36 % (35-47); Hemoglobin 12.2 g/dL (12.0-16.0); Lymphocyte % 19.9 %; Mean Corpuscular HGB Conc 34 g/dL (31-36); Mean Corpuscular Hemoglobin 31 pg (27-31); Mean Corpuscular Volume 93 fL (80-97); Mean Platelet Volume 8.1 fL (7.4-10.4); Platelet Count 268 10^3/uL (150-450); Red Blood Count 3.91 10^6 /uL (3.70-4.87); Red Cell Distribution Width 13 % (10-15); White Blood Count 7.7 10^3/uL (3.5-10.8)
[2020-12-31] MEDS: HYDROmorphone 1 MG/1 ML SYRINGE IV SLOW PU PRN ×4 (06:37→18:22)
[2020-12-31 06:44] LABS: Activated Partial Thrombo Time 28.8 seconds (26.0-38.0); INR 1.08 (0.82-1.09)
[2020-12-31 06:51] LABS: Calcium 8.8 mg/dL (8.6-10.3); EGFR African American 145.5 (>60); EGFR Non-African American 120.2 (>60); Potassium 3.5 mmol/L (3.5-5.0)
[2020-12-31] MEDS: Fluticasone NASAL SPRAY 50MCG 16 gm SPRAY BTL INTRANASAL SCH ×2 (08:23→23:57)
[2020-12-31] MEDS: oxyCODONE SR 10 mg TAB PO SCH ×2 (10:48→22:00)
[2020-12-31] MEDS ORDERED: HYDROmorphone 1 MG/1 ML SYRINGE ONE ×2 (17:44→18:22)
[2020-12-31] MEDS ORDERED: Propofol 10 MG/ML 20 ML BTL ONE (18:10)
[2020-12-31] MEDS ORDERED: fentaNYL 250 mcg/5 ml 50 MCG/ML 5 ml VIAL (250 MCG) ONE (18:10)
[2020-12-31] MEDS ORDERED: Midazolam 2 mg/2 ml VIAL 1 mg/ml 2 ml VIAL (2 mg) ONE (18:10)
[2020-12-31] MEDS ORDERED: Lidocaine 2% PF 5 ML VIAL ONE (18:11)
[2020-12-31] MEDS ORDERED: Sevoflurane BOTTLE ONE (18:13)
[2020-12-31] MEDS ORDERED: Rocuronium 50 mg VIAL 10 mg/ml 5 ml VIAL (50 mg) ONE (18:17)
[2020-12-31] MEDS ORDERED: Bacitracin INJECTION 50,000 UNITS ONE (18:37)
[2020-12-31] MEDS ORDERED: Lidocaine 1% w EPI 1:100,000 MDV 20 ML VIAL ONE (18:37)
[2020-12-31] MEDS ORDERED: fentaNYL 100 mcg/2 ml 50 MCG/ML VIAL IV PRN (18:45)
[2020-12-31] MEDS ORDERED: HYDROmorphone 1 MG/1 ML SYRINGE IV PRN (18:45)
[2020-12-31] MEDS ORDERED: Ondansetron 4 mg VIAL 2 MG/ML 2 ml VIAL IV PRN (18:45)
[2020-12-31] MEDS ORDERED: Naloxone 0.4 mg VIAL 0.4 mg/ml 1 ml VIAL IV PRN (18:45)
[2020-12-31] MEDS ORDERED: DiMENhydriNATE IV 50 mg/ml 1 ml VIAL IV PUSH PRN (18:45)
[2020-12-31] MEDS ORDERED: ceFAZolin 2 GM PREMIX 2 GM/50 ML BAG ONE (18:50)
[2020-12-31] MEDS ORDERED: EPHEDrine (Pressors) 50 MG/ML VIAL ONE (19:27)
[2020-12-31] MEDS ORDERED: Phenylephrine 40 mcg/mL 10mL (400mcg) SYRINGE ONE (19:52)
[2020-12-31] MEDS ORDERED: Dexamethasone IV 4 MG/ML VIAL 1 ml VIAL ONE (19:57)
[2020-12-31] MEDS ORDERED: Acetaminophen IV 1 GM/100ML 100 ML ONE (20:27)
[2020-12-31] MEDS ORDERED: Ondansetron 4 mg VIAL 2 MG/ML 2 ml VIAL ONE (20:27)
[2020-12-31] MEDS ORDERED: fentaNYL 100 mcg/2 ml 50 MCG/ML VIAL ONE (21:44)
[2021-01-01] MEDS: ceFAZolin 1 GM X 3 DOSES POST-OP Q8H (AddVan) IVPB SCH ×3 (02:46→18:26)
[2021-01-01] MEDS: Enoxaparin 40 MG/0.4 ML SYR SUBCUT SCH (07:44)
[2021-01-01] MEDS: Fluticasone NASAL SPRAY 50MCG 16 gm SPRAY BTL INTRANASAL SCH ×2 (07:44→20:27)
[2021-01-01] MEDS: oxyCODONE SR 10 mg TAB PO SCH ×2 (07:45→20:26)
[2021-01-01 11:15] LABS: Hematocrit 31 % (35-47); Hemoglobin 10.2 g/dL (12.0-16.0)
[2021-01-01] MEDS: HYDROmorphone 1 MG/1 ML SYRINGE IV SLOW PU PRN ×2 (16:08→21:48)
[2021-01-02] MEDS: HYDROmorphone 1 MG/1 ML SYRINGE IV SLOW PU PRN ×4 (02:12→21:05)
[2021-01-02 04:26] LABS: Hematocrit 28 % (35-47); Hemoglobin 9.3 g/dL (12.0-16.0); Mean Corpuscular HGB Conc 34 g/dL (31-36); Mean Corpuscular Hemoglobin 32 pg (27-31); Mean Corpuscular Volume 94 fL (80-97); Mean Platelet Volume 8.2 fL (7.4-10.4); Platelet Count 202 10^3/uL (150-450); Red Blood Count 2.91 10^6 /uL (3.70-4.87); Red Cell Distribution Width 13 % (10-15)
[2021-01-02] MEDS: Cholecalciferol (VIT D3) 1,000 unit TAB PO SCH (09:08)
[2021-01-02] MEDS: oxyCODONE SR 10 mg TAB PO SCH ×2 (09:12→20:40)
[2021-01-02] MEDS: Enoxaparin 40 MG/0.4 ML SYR SUBCUT SCH (09:13)
[2021-01-02] MEDS: Polyethylene Glycol 3350 17 GM PACKET PO PRN (09:13)
[2021-01-02] MEDS: Fluticasone NASAL SPRAY 50MCG 16 gm SPRAY BTL INTRANASAL SCH ×2 (09:26→20:40)
[2021-01-02] MEDS: Senna TAB 8.6 mg TAB PO SCH (20:40)
[2021-01-03] MEDS: HYDROmorphone 1 MG/1 ML SYRINGE IV SLOW PU PRN (04:43)
[2021-01-03 06:06] LABS: Hematocrit 27 % (35-47); Hemoglobin 8.9 g/dL (12.0-16.0)
[2021-01-03 06:07] LABS: Calcium 8.4 mg/dL (8.6-10.3); EGFR African American 121.4 (>60); EGFR Non-African American 100.3 (>60); Potassium 4.3 mmol/L (3.5-5.0)
[2021-01-03] MEDS: Cholecalciferol (VIT D3) 1,000 unit TAB PO SCH (08:42)
[2021-01-03] MEDS: oxyCODONE SR 10 mg TAB PO SCH (08:42)
[2021-01-03] MEDS: Enoxaparin 40 MG/0.4 ML SYR SUBCUT SCH (08:42)
[2021-01-03] MEDS: Fluticasone NASAL SPRAY 50MCG 16 gm SPRAY BTL INTRANASAL SCH ×2 (08:43→20:12)
[2021-01-03] MEDS: Polyethylene Glycol 3350 17 GM PACKET PO PRN (08:49)
[2021-01-03] MEDS ORDERED: HYDROmorphone 1 MG/1 ML SYRINGE IV SLOW PU PRN (12:18)
[2021-01-03] MEDS: Magnesium Hydroxide LIQ 30 ML UDC PO PRN (17:13)
[2021-01-03] MEDS: Senna TAB 8.6 mg TAB PO SCH (20:03)
[2021-01-03] MEDS ORDERED: oxyCODONE SR 10 mg TAB PO SCH (21:00)
[2021-01-03] MEDS ORDERED: oxyCODONE SR 15 mg TAB PO SCH (21:00)
[2021-01-04 05:15] LABS: Hematocrit 27 % (35-47); Hemoglobin 9.3 g/dL (12.0-16.0)
[2021-01-04] MEDS: Polyethylene Glycol 3350 17 GM PACKET PO PRN (08:07)
[2021-01-04] MEDS: Magnesium Hydroxide LIQ 30 ML UDC PO PRN (08:07)
[2021-01-04] MEDS: Fluticasone NASAL SPRAY 50MCG 16 gm SPRAY BTL INTRANASAL SCH (09:26)
[2021-01-04] MEDS: Cholecalciferol (VIT D3) 1,000 unit TAB PO SCH (09:27)
[2021-01-04] MEDS: Enoxaparin 40 MG/0.4 ML SYR SUBCUT SCH (09:29)
[2021-01-04 10:54] VITALS: BP 131/82
== END 2021-01-04 14:58 ==
LOC: ED 13:37 → SSU 16:19
PROVIDERS: ADMIT Student in an Organized Health Care Education/Training Program; ATTEND Pediatrics

== ENCOUNTER 2021-01-04 13:59 | Inpatient (IN) ==
[2021-01-04] MEDS ORDERED: Senna TAB 8.6 mg TAB PO PRN (16:38)
[2021-01-05] MEDS: Enoxaparin 40 MG/0.4 ML SYR SUBCUT SCH (07:23)
[2021-01-05] MEDS: Cholecalciferol (VIT D3) 1,000 unit TAB PO SCH (07:23)
[2021-01-05 08:31] LABS: ABS Basophils 0.1 10^3/ul (0-0.2); ABS Eosinophils 0.4 10^3/ul (0-0.6); ABS Lymphocytes 2.1 10^3/ul (1.0-4.8); ABS Monocytes 0.7 10^3/ul (0-0.8); ABS Neutrophils 4.9 10^3/ul (1.5-7.7); Hematocrit 29 % (35-47); Hemoglobin 9.9 g/dL (12.0-16.0); Mean Corpuscular HGB Conc 34 g/dL (31-36); Mean Corpuscular Hemoglobin 32 pg (27-31); Mean Corpuscular Volume 92 fL (80-97); Mean Platelet Volume 7.9 fL (7.4-10.4); Platelet Count 337 10^3/uL (150-450); Red Blood Count 3.13 10^6 /uL (3.70-4.87); Red Cell Distribution Width 13 % (10-15); White Blood Count 8.3 10^3/uL (3.5-10.8)
[2021-01-05 08:44] LABS: Albumin 3.5 g/dL (3.2-5.2); Calcium 9.5 mg/dL (8.6-10.3); EGFR African American 148.7 (>60); EGFR Non-African American 122.9 (>60); Globulin 3.6 g/dL (2-4); Potassium 3.6 mmol/L (3.5-5.0); Total Protein 7.1 g/dL (6.4-8.9)
[2021-01-06] MEDS: Cholecalciferol (VIT D3) 1,000 unit TAB PO SCH (09:08)
[2021-01-06] MEDS: Enoxaparin 40 MG/0.4 ML SYR SUBCUT SCH (09:08)
[2021-01-06] MEDS: Magnesium Hydroxide LIQ 30 ML UDC PO PRN (19:06)
[2021-01-07] MEDS: Enoxaparin 40 MG/0.4 ML SYR SUBCUT SCH (09:16)
[2021-01-07] MEDS: Cholecalciferol (VIT D3) 1,000 unit TAB PO SCH (09:16)
[2021-01-07] MEDS: Magnesium Hydroxide LIQ 30 ML UDC PO PRN (16:57)
[2021-01-08] MEDS: Cholecalciferol (VIT D3) 1,000 unit TAB PO SCH (08:03)
[2021-01-08] MEDS: Enoxaparin 40 MG/0.4 ML SYR SUBCUT SCH (08:36)
[2021-01-09] MEDS: Cholecalciferol (VIT D3) 1,000 unit TAB PO SCH (09:36)
[2021-01-09] MEDS: Enoxaparin 40 MG/0.4 ML SYR SUBCUT SCH (09:36)
[2021-01-10] MEDS: Cholecalciferol (VIT D3) 1,000 unit TAB PO SCH (08:05)
[2021-01-10] MEDS: Enoxaparin 40 MG/0.4 ML SYR SUBCUT SCH (08:07)
[2021-01-11] MEDS: Enoxaparin 40 MG/0.4 ML SYR SUBCUT SCH (08:02)
[2021-01-11] MEDS: Cholecalciferol (VIT D3) 1,000 unit TAB PO SCH (08:02)
[2021-01-11] MEDS ORDERED: COVID-19 VACCINE, MRNA(MODERNA)/PF 100 MCG/0.5 ML IM ONE (14:00)
[2021-01-12 05:57] LABS: ABS Basophils 0.1 10^3/ul (0-0.2); ABS Eosinophils 0.4 10^3/ul (0-0.6); ABS Lymphocytes 2.9 10^3/ul (1.0-4.8); ABS Monocytes 0.8 10^3/ul (0-0.8); ABS Neutrophils 6.8 10^3/ul (1.5-7.7); Hematocrit 27 % (35-47); Hemoglobin 8.9 g/dL (12.0-16.0); Lymphocyte % 26.1 %; Mean Corpuscular HGB Conc 33 g/dL (31-36); Mean Corpuscular Hemoglobin 30 pg (27-31); Mean Corpuscular Volume 93 fL (80-97); Nucleated Red Blood Cells % 0.1; Platelet Count 559 10^3/uL (150-450); Red Blood Count 2.93 10^6 /uL (3.70-4.87); Red Cell Distribution Width 13 % (10-15); White Blood Count 11.1 10^3/uL (3.5-10.8)
[2021-01-12 06:19] LABS: Albumin 3.2 g/dL (3.2-5.2); Calcium 8.9 mg/dL (8.6-10.3); EGFR African American 136.5 (>60); EGFR Non-African American 112.8 (>60); Globulin 3.2 g/dL (2-4); Total Bilirubin 0.7 mg/dL (0.2-1.0); Total Protein 6.4 g/dL (6.4-8.9)
[2021-01-12] MEDS: Cholecalciferol (VIT D3) 1,000 unit TAB PO SCH (08:41)
[2021-01-12] MEDS: Enoxaparin 40 MG/0.4 ML SYR SUBCUT SCH (08:41)
[2021-01-13] MEDS: Cholecalciferol (VIT D3) 1,000 unit TAB PO SCH (07:19)
[2021-01-13] MEDS: Enoxaparin 40 MG/0.4 ML SYR SUBCUT SCH (07:20)
[2021-01-14 04:35] VITALS: BP 119/65
[2021-01-14] MEDS: Cholecalciferol (VIT D3) 1,000 unit TAB PO SCH (08:47)
[2021-01-14] MEDS: Enoxaparin 40 MG/0.4 ML SYR SUBCUT SCH (08:47)
== END 2021-01-14 12:30 | disposition home or self-care (01) | DRG 860 ==
LOC: SSU 15:00 → PMRU 15:08
PROVIDERS: ADMIT Physical Medicine & Rehabilitation; ATTEND Physical Medicine & Rehabilitation